=== PATIENT | female | born 1955 | race Caucasian/White ===

== ENCOUNTER → 2021-11-07 08:23 | Outpatient (CLI) | payer BC, SELFPAY ==
[2021-11-07 09:11] LABS: Basophils # 0.2 K/mm3 (0-0.2); Eosinophils # 0.3 K/mm3 (0.0-0.4); Eosinophils % 5.4 % (0.1-12.0); Hemoglobin 16.8 g/dL (12.2-16.2); Lymphocytes # 2.2 K/mm3 (0.7-4.5); Lymphocytes % 35.9 % (10-50); Mean Corpuscular HGB Conc 32.2 g/dL (31.8-35.4); Mean Corpuscular Hemoglobin 30.9 pg (27.0-31.2); Mean Corpuscular Volume 95.9 fl (81-99); Mean Platelet Volume 9.1 fl (7.4-10.4); Monocytes # 0.3 K/mm3 (0.1-1.0); Monocytes % 4.9 % (1.7-9.3); Neutrophils # 3.1 K/mm3 (1.8-7.8); Neutrophils % 50.8 % (37.0-80.0); Platelet Count 201 K/mm3 (142-424); Red Blood Count 5.42 M/mm3 (4.20-5.40); Red Cell Distribution Width 13.6 % (11.5-17.5); White Blood Count 6.2 K/mm3 (4.8-10.8)
[2021-11-07 09:41] LABS: Alanine Aminotransferase 72 U/L (12-78); Albumin Level 4.1 g/dl (3.5-5.0); Albumin/Globulin Ratio 1.8 (1.1-1.8); Alkaline Phosphatase 99 U/L (38-126); Anion Gap 13.1 mEq/L (5-15); Aspartate Amino Transferase 48 U/L (14-36); Bilirubin,Total 0.5 mg/dl (0.2-1.3); Blood Urea Nitrogen 22 mg/dl (7-17); Calcium 8.6 mg/dl (8.4-10.2); Carbon Dioxide 27 mmol/L (22.0-30.0); Chloride 103 mmol/L (98-107); Chol/HDL Ratio 2.6 (1-3.5); Cholesterol 134 mg/dl (140-200); Estimated Glomerular Filt Rate 101 ml/min (>60); GFR (African American) 122 ML/MIN (>60); Globulin 2.3 g/dL (1.3-3.2); Glucose 110 mg/dl (74-100); HDL Cholesterol 52 mg/dl (40-60); Potassium 4.1 mmoL/L (3.5-5.1); Sodium 139 mmol/L (136-145); Total Protein,Serum 6.4 g/dl (6.3-8.2); Triglycerides 145 mg/dl (30-150); VLDL Cholesterol 29 mg/dL (0-40)
[2021-11-07 09:51] LABS: Direct LDL Cholesterol 65.85 mg/dL (100-129)
[2021-11-07 10:08] LABS: Hemoglobin A1C 5.6 % (4.0-6.0)
[2021-11-07 10:11] LABS: Thyroid Stimulating Hormone 7.82 uIU/mL (0.465-4.68)
== END ==
DX: Z00.00 Encounter for general adult medical examination without abnormal findings (principal); E11.9 Type 2 diabetes mellitus without complications
CPT/HCPCS: 36415; 80053; 80061; 83036; 84443; 85025

== ENCOUNTER → 2022-04-15 23:28 | Outpatient (CLI) | payer MEDICARE, SELFPAY ==
[2022-04-15 17:21] LABS: Basophils # 0.1 K/mm3 (0-0.2); Basophils % 1.1 % (0.1-2.0); Eosinophils # 0.3 K/mm3 (0.0-0.4); Eosinophils % 4.2 % (0.1-12.0); Hematocrit 53.8 % (37.0-47.0); Hemoglobin 17.5 g/dL (12.2-16.2); Lymphocytes # 2.4 K/mm3 (0.7-4.5); Lymphocytes % 36.3 % (10-50); Mean Corpuscular HGB Conc 32.5 g/dL (31.8-35.4); Mean Corpuscular Hemoglobin 30.9 pg (27.0-31.2); Mean Corpuscular Volume 94.9 fl (81-99); Mean Platelet Volume 9.8 fl (7.4-10.4); Monocytes # 0.3 K/mm3 (0.1-1.0); Monocytes % 4.3 % (1.7-9.3); Neutrophils # 3.5 K/mm3 (1.8-7.8); Platelet Count 222 K/mm3 (142-424); Red Blood Count 5.67 M/mm3 (4.20-5.40); Red Cell Distribution Width 13.4 % (11.5-17.5); White Blood Count 6.5 K/mm3 (4.8-10.8)
[2022-04-15 17:37] LABS: Alanine Aminotransferase 107 U/L (12-78); Albumin Level 4.6 g/dl (3.5-5.0); Albumin/Globulin Ratio 1.8 (1.1-1.8); Alkaline Phosphatase 101 U/L (38-126); Anion Gap 14.1 mEq/L (5-15); Aspartate Amino Transferase 67 U/L (14-36); Bilirubin,Total 0.8 mg/dl (0.2-1.3); Blood Urea Nitrogen 13 mg/dl (7-17); Calcium 9.2 mg/dl (8.4-10.2); Carbon Dioxide 27 mmol/L (22.0-30.0); Chloride 102 mmol/L (98-107); Chol/HDL Ratio 2.4 (1-3.5); Cholesterol 146 mg/dl (140-200); Estimated Glomerular Filt Rate 84 ml/min (>60); GFR (African American) 102 ML/MIN (>60); Globulin 2.5 g/dL (1.3-3.2); Glucose 109 mg/dl (74-100); HDL Cholesterol 60 mg/dl (40-60); Potassium 4.1 mmoL/L (3.5-5.1); Sodium 139 mmol/L (136-145); Total Protein,Serum 7.1 g/dl (6.3-8.2); Triglycerides 164 mg/dl (30-150); VLDL Cholesterol 33 mg/dL (0-40)
[2022-04-15 17:48] LABS: Direct LDL Cholesterol 69.82 mg/dL (100-129)
[2022-04-15 17:50] LABS: Hemoglobin A1C 5.8 % (4.0-6.0)
[2022-04-15 17:54] LABS: 25-OH Vitamin D, Total 73.8 ng/mL (30-100)
[2022-04-15 18:07] LABS: Thyroid Stimulating Hormone 8.79 uIU/mL (0.465-4.68)
== END ==
PROVIDERS: PCP Student in an Organized Health Care Education/Training Program; Visit Provider Student in an Organized Health Care Education/Training Program
DX: E11.9 Type 2 diabetes mellitus without complications (principal); Z13.220 Encounter for screening for lipoid disorders; Z13.29 Encounter for screening for other suspected endocrine disorder; E55.9 Vitamin D deficiency, unspecified; Z79.84 Long term (current) use of oral hypoglycemic drugs; Z79.899 Other long term (current) drug therapy
CPT/HCPCS: 80053; 80061; 82306; 83036; 84443; 85025

== ENCOUNTER → 2022-04-30 10:10 | Outpatient (CLI) | payer MEDICARE, SELFPAY ==
[2022-04-30 10:30] LABS: MANUAL DIFFERENTIAL MANUAL DIFFERENTIAL (MANUAL DIFF)
[2022-04-30 11:02] LABS: Basophils # 0.1 K/mm3 (0-0.2); Basophils % 1.1 % (0.1-2.0); Eosinophils # 0.4 K/mm3 (0.0-0.4); Hematocrit 52.1 % (37.0-47.0); Hemoglobin 16.8 g/dL (12.2-16.2); Lymphocytes # 2.7 K/mm3 (0.7-4.5); Lymphocytes % 36.7 % (10-50); Mean Corpuscular HGB Conc 32.3 g/dL (31.8-35.4); Mean Corpuscular Volume 96.1 fl (81-99); Mean Platelet Volume 8.8 fl (7.4-10.4); Monocytes # 0.3 K/mm3 (0.1-1.0); Monocytes % 3.6 % (1.7-9.3); Neutrophils # 3.9 K/mm3 (1.8-7.8); Neutrophils % 53.6 % (37.0-80.0); Platelet Count 228 K/mm3 (142-424); Red Blood Count 5.42 M/mm3 (4.20-5.40); Red Cell Distribution Width 13.5 % (11.5-17.5); White Blood Count 7.2 K/mm3 (4.8-10.8)
[2022-04-30 11:22] LABS: Anisocytosis 1+; Eosinophils % 2 % (0-3); Lymphocytes % 36 % (10-50); Macrocytosis 1+; Monocytes % 1 % (2-9); Neutrophils % 61 % (42-76); Ovalocytes 1+; Platelet Estimate Normal; Total Cells Counted 100
[2022-04-30 11:31] LABS: Chloride 106 mmol/L (98-107); Sodium 141 mmol/L (136-145)
[2022-04-30 11:34] LABS: Alanine Aminotransferase 79 U/L (12-78); Albumin Level 4.4 g/dl (3.5-5.0); Alkaline Phosphatase 90 U/L (38-126); Aspartate Amino Transferase 52 U/L (14-36); Bilirubin,Total 0.7 mg/dl (0.2-1.3); Blood Urea Nitrogen 17 mg/dl (7-17); Estimated Glomerular Filt Rate 100 ml/min (>60); GFR (African American) 121 ML/MIN (>60)
[2022-04-30 11:35] LABS: Albumin/Globulin Ratio 1.8 (1.1-1.8); Calcium 8.6 mg/dl (8.4-10.2); Carbon Dioxide 25 mmol/L (22.0-30.0); Globulin 2.5 g/dL (1.3-3.2); Glucose 106 mg/dl (74-100); Total Protein,Serum 6.9 g/dl (6.3-8.2)
[2022-04-30 11:52] LABS: T4 (Thyroxine) 5.4 ug/dl (5.53-11.0)
[2022-04-30 12:46] LABS: Free Thyroxine Index 1.4 ug/dL (5.93-13.13); Triiodothryronine (T3) Uptake 25 % (23.5-40.5)
[2022-05-01 12:06] LABS: Thyroid Peroxidase Antibodies <9 IU/mL (0-34); Triiodothyronine (T3) Total 108 ng/dL (71-180)
[2022-05-01 17:21] LABS: Thyroglobulin Level <1.0 IU/mL (0.0-0.9)
[2022-05-02 10:28] LABS: Peripheral Smear Review Scanned Result
[2022-05-03 07:55] LABS: Thyroid Stimulating Immunoglob <0.10 IU/L (0.00-0.55)
== END ==
PROVIDERS: Family Medicine; PCP Student in an Organized Health Care Education/Training Program; Visit Provider Student in an Organized Health Care Education/Training Program
DX: E11.9 Type 2 diabetes mellitus without complications (principal); E03.9 Hypothyroidism, unspecified; Z79.84 Long term (current) use of oral hypoglycemic drugs
CPT/HCPCS: 36415; 80053; 82668; 84436; 84439; 84443; 84445; 84479; 84480; 85007; 85014; 85018; 85048; 85049; 86376; 86800

== ENCOUNTER → 2022-05-01 08:53 | Outpatient (CLI) | payer MEDICARE, SELFPAY ==
--- NOTE | 2022-05-01 08:54 | XR_ITS ---
FINAL REPORT TECHNIQUE: Bone densitometry calculations of the lumbar spine and hips were obtained. CLINICAL HISTORY: osteoporosis FINDINGS: DEXA BONE DENSITY AXIAL SKELETON Using L1-4, the bone mineral density of the spine is 0.767 g/cm2, corresponding to T-score of -2.5. Using the left hip, the bone mineral density of the femoral neck is 0.722 g/cm2, corresponding to a T-score of -1.1. Using the right hip, the bone mineral density of the femoral neck is 0.621 g/cm2, corresponding to a T-score of -2.1. NOTE: T-score: Standard deviation compared with peak bone mass of young adult mean. *Following the recommendations of the International Society of Bone densitometry, classification of hip BMD is based on the lower of two T-scores; total hip or femoral neck. IMPRESSION: Diminished bone mineral density of the hips consistent with osteopenia. Diminished bone mineral density of the lumbar spine consistent with borderline osteoporosis. FRAX not reported because: Some T-score for Spine Total or hip Total or femoral neck at or below-2.5. Reviewed, Interpreted and Dictated by Ralf Avalos MD Transcribed by Mariella Meek Authenticated and [facility]
== END ==
PROVIDERS: PCP Student in an Organized Health Care Education/Training Program; Visit Provider Student in an Organized Health Care Education/Training Program
DX: Z78.0 Asymptomatic menopausal state (principal)
CPT/HCPCS: 77080

== ENCOUNTER → 2022-05-30 10:00 | Outpatient (CLI) | payer MEDICARE, SELFPAY ==
[2022-05-30 10:36] LABS: Basophils # 0.1 K/mm3 (0-0.2); Basophils % 0.9 % (0.1-2.0); Eosinophils # 0.3 K/mm3 (0.0-0.4); Eosinophils % 4.2 % (0.1-12.0); Hematocrit 50.6 % (37.0-47.0); Hemoglobin 16.8 g/dL (12.2-16.2); Lymphocytes # 2.8 K/mm3 (0.7-4.5); Lymphocytes % 39.1 % (10-50); Mean Corpuscular HGB Conc 33.3 g/dL (31.8-35.4); Mean Corpuscular Hemoglobin 31.1 pg (27.0-31.2); Mean Corpuscular Volume 93.2 fl (81-99); Mean Platelet Volume 9.2 fl (7.4-10.4); Monocytes # 0.3 K/mm3 (0.1-1.0); Monocytes % 3.9 % (1.7-9.3); Neutrophils # 3.7 K/mm3 (1.8-7.8); Neutrophils % 51.9 % (37.0-80.0); Platelet Count 204 K/mm3 (142-424); Red Blood Count 5.43 M/mm3 (4.20-5.40); Red Cell Distribution Width 13.4 % (11.5-17.5); White Blood Count 7.1 K/mm3 (4.8-10.8)
[2022-05-30 11:10] LABS: Chloride 105 mmol/L (98-107); Potassium 4.3 mmoL/L (3.5-5.1); Sodium 140 mmol/L (136-145)
[2022-05-30 11:12] LABS: Blood Urea Nitrogen 20 mg/dl (7-17); Estimated Glomerular Filt Rate 84 ml/min (>60); GFR (African American) 102 ML/MIN (>60)
[2022-05-30 11:13] LABS: Alanine Aminotransferase 77 U/L (12-78); Albumin Level 4.2 g/dl (3.5-5.0); Albumin/Globulin Ratio 1.7 (1.1-1.8); Alkaline Phosphatase 98 U/L (38-126); Anion Gap 12.3 mEq/L (5-15); Aspartate Amino Transferase 52 U/L (14-36); Bilirubin,Total 0.6 mg/dl (0.2-1.3); Calcium 8.7 mg/dl (8.4-10.2); Carbon Dioxide 27 mmol/L (22.0-30.0); Globulin 2.5 g/dL (1.3-3.2); Glucose 122 mg/dl (74-100); Iron 97 ug/dL (37-170); Total Protein,Serum 6.7 g/dl (6.3-8.2)
[2022-05-30 11:29] LABS: Triiodothryronine (T3) Uptake 29 % (23.5-40.5)
[2022-05-30 11:43] LABS: Thyroid Stimulating Hormone 7.23 uIU/mL (0.465-4.68)
[2022-06-01 10:07] LABS: Peripheral Smear Review Scanned Result
== END ==
PROVIDERS: PCP Student in an Organized Health Care Education/Training Program; Visit Provider Student in an Organized Health Care Education/Training Program
DX: R71.8 Other abnormality of red blood cells (principal); R79.89 Other specified abnormal findings of blood chemistry; Z79.899 Other long term (current) drug therapy
CPT/HCPCS: 36415; 80053; 83540; 84436; 84443; 84479; 85025

== ENCOUNTER → 2022-08-01 14:56 | Outpatient (CLI) | payer MEDICARE, SELFPAY ==
[2022-08-01 16:40] LABS: Basophils # 0.1 K/mm3 (0-0.2); Basophils % 0.6 % (0.1-2.0); Eosinophils # 0.3 K/mm3 (0.0-0.4); Eosinophils % 3.3 % (0.1-12.0); Hematocrit 49.7 % (37.0-47.0); Hemoglobin 16.4 g/dL (12.2-16.2); Lymphocytes # 2.7 K/mm3 (0.7-4.5); Lymphocytes % 34.5 % (10-50); Mean Corpuscular Hemoglobin 30.3 pg (27.0-31.2); Mean Corpuscular Volume 91.7 fl (81-99); Mean Platelet Volume 9.7 fl (7.4-10.4); Monocytes # 0.4 K/mm3 (0.1-1.0); Monocytes % 4.6 % (1.7-9.3); Neutrophils # 4.4 K/mm3 (1.8-7.8); Neutrophils % 57.1 % (37.0-80.0); Platelet Count 217 K/mm3 (142-424); Red Blood Count 5.42 M/mm3 (4.20-5.40); Red Cell Distribution Width 13.5 % (11.5-17.5); White Blood Count 7.7 K/mm3 (4.8-10.8)
[2022-08-05 15:29] LABS: Erythropoietin 16.5 mIU/mL (2.6-18.5)
== END ==
PROVIDERS: PCP Student in an Organized Health Care Education/Training Program; Visit Provider Internal Medicine Medical Oncology
DX: D75.1 Secondary polycythemia (principal)
CPT/HCPCS: 36415; 81270; 82668; 85025

== ENCOUNTER → 2022-08-16 13:00 | Outpatient (CLI) | payer MEDICARE, SELFPAY | PROVIDERS: PCP Student in an Organized Health Care Education/Training Program; Visit Provider Internal Medicine Medical Oncology | DX: D75.1 Secondary polycythemia (principal); G47.30 Sleep apnea, unspecified; R06.83 Snoring | CPT/HCPCS: G0399 ==

== ENCOUNTER → 2022-09-04 13:59 | Outpatient (CLI) | payer MEDICARE, SELFPAY ==
[2022-09-04 15:52] LABS: Free T4 (Free Thyroxine) 0.71 ng/dl (0.78-2.19)
[2022-09-04 16:07] LABS: Thyroid Stimulating Hormone 4.53 uIU/mL (0.465-4.68)
== END ==
PROVIDERS: PCP Student in an Organized Health Care Education/Training Program; Visit Provider Student in an Organized Health Care Education/Training Program
DX: E13.69 Other specified diabetes mellitus with other specified complication (principal); Z79.84 Long term (current) use of oral hypoglycemic drugs; Z79.899 Other long term (current) drug therapy
CPT/HCPCS: 36415; 84439; 84443

== ENCOUNTER → 2022-09-19 07:10 | Outpatient (CLI) | payer MEDICARE, SELFPAY ==
--- NOTE | 2022-09-19 | CA_ITS ---
APPROVED REPORT Exam: Pharmacologic Technologist: Jasmina Balderas, Ht: 5 ft 2 in Wt: 204 lbs BSA: 1.93 m2 HR: 63 bpm BP: 156/60 mmHg Rhythm: NSR, low voltage QRS Medical History Medications: Levothyroxine,,,,, Metformin,,,,, Gabapentin,,,,, Prilosec,,,,, AmiTRIPTYLINE,,,,, BenaDRYL,,,,, JaRDiance,,,,, RoSUVASTATIN,,,,, Lancets,,,,, Galzin,,,,, Ciclopirox,,,,, Cardiac Risk Factors: Hyperlipidemia, Diabetes (non-insulin) Stress Test Details Test: LEXISCAN HR Resting HR: 66 bpm Max Heart Rate (APMHR): 155 bpm Max HR Achieved: 88 bpm Target HR (85% APMHR): 132 bpm % of APMHR: 57 Recovery HR: 76 bpm BP Resting BP: 156/60 mmHg Max BP: 156/60 mmHg Recovery BP: 142.0/73.0 mmHg ECG Resting ECG: NSR, low voltage QRS Stress ECG: No change Clinical Exercise duration: 04:00 min Highest Stage Achieved: Stress ECG Conclusion During lexiscan pt experinced stomach and head discomfort. No CP noted. No arrhythmias noted. No signficant ST changes. Unremarkable lexiscan stress. Myoview images reported separately. Test Summary REST . . . . . . . Sitting REST . . . . . . . Sitting REST 03:57 . . 66 . 156/ 60 . . Stage 1 01:00 . . 79 . . . . Stage 2 01:00 . . 83 . 148/ 64 . . Stage 3 01:00 . . 84 . 142/ 66 . . Stage 4 01:00 . . 83 . 122/ 77 . Stop exercise at 04:00 RECOVERY 01:00 . . 77 . . . . RECOVERY 02:00 . . 77 . 142/ 73 . . RECOVERY 03:00 . . 74 . 149/ 68 . . RECOVERY 03:28 . . 76 . 149/ 68 . . Electronically signed by : Hyun David, 09/23/2022 12:21:32
--- NOTE | 2022-09-19 07:10 | NM_ITS ---
APPROVED REPORT Exam: Nuclear Stress Test Indication: fatigue Patient Location: Outpatient Stress Tech: Jasmina ACHARYA Tech:Tammy SorensenCHEPE RT(R)(N) Ht: 5 ft 2 in Wt: 204 lbs Bra Size: 40d HR: 66 bpm BP: 156/60 mmHg BSA: 1.93 m2 Rhythm: NSR TID: 1.18 BMI: 37.3 History: fatigue Procedure: Patient received 0.4 mg of intravenous Lexiscan, resting heart rate 66 bpm, resting blood pressure 156/60 mmHg, with Lexiscan maximum heart rate achieved was 88 bpm which is 85 % of the maximum predicted heart rate and blood pressure was 156/60 mmHg. With Lexiscan, patient denied any complaint of chest pain. Cardiac Stress and Resting SPECT Images: Cardiac Stress and Resting SPECT images were obtained using technetium 99m Myoview 30.7 mCi stress and 10.45 mCi at rest. Resting and stress imaging in both supine and prone positions demonstrate no evidence of fixed or reversible perfusion defects. Gated imaging demonstrates normal global and regional LV systolic function. LVEF is calculated at 73%. Conclusion: No evidence of fixed or reversible perfusion defects. Gated imaging demonstrates normal global and regional LV systolic function. LVEF is calculated at 73%. Electronically signed by : Hyun David, 09/23/2022 12:24:39
== END ==
LOC: RAD 07:10
PROVIDERS: PCP Student in an Organized Health Care Education/Training Program; Visit Provider Physician Assistant
DX: E11.9 Type 2 diabetes mellitus without complications (principal); E66.9 Obesity, unspecified; E78.5 Hyperlipidemia, unspecified; I25.118 Atherosclerotic heart disease of native coronary artery with other forms of angina pectoris; R06.00 Dyspnea, unspecified; R07.89 Other chest pain; Z79.84 Long term (current) use of oral hypoglycemic drugs; Z68.36 Body mass index [BMI] 36.0-36.9, adult
CPT/HCPCS: 78452; 93017; A9502; J2785

== ENCOUNTER → 2022-10-04 14:01 | Outpatient (CLI) | payer MEDICARE, SELFPAY ==
--- NOTE | 2022-10-04 14:11 | CA_ITS ---
APPROVED REPORT EXAM: Comprehensive 2D, Doppler, and color-flow Echocardiogram Social Insurance Specialist: Robyn Lopez RDCS Ht: 5 ft 2 in Wt: 204lbs BSA: 1.93 BP: 144/76 mmHg Indications: CP,DM,SOA,OBESITY,HLP.HTN 2D Dimensions LVOT 1.58 cm (M/F) 1.5-2.5 M-Mode Dimensions RVDd 2.22 cm (0.9-2.6) LA Diam 3.26 cm (1.9-4.0) LVDd 4.54 cm (3.5-5.7) Ao Diam 2.70 cm (2.0-3.7) LVDs 3.07 cm (3.5-5.7) IVSd 0.81 cm (0.6-1.1) PWd 0.75 cm (0.6-1.1) EF (Teich) 60.80% FS 32.40% EDV (Teich) 94.40 mL ESV (Teich) 37.00 mL LV Diastology E Decel Time 270.00 (160-240 msec) E/A Ratio 1.0 MED E' 6.30 (< 7 cm/sec) E'/MED E' Ratio 14.05 (>14) LAT E' 8.80 (<10 cm/sec) E/LAT E' Ratio 10.06 (>14) Mitral Valve MV E Max Ernesto. 88.00 (40-130 cm/s) MV A Velocity 86.00 (40-130 cm/s) E/A Ratio 1.03 MV Decel. Time 270.00 (160-240 ms) MV PHT 79.00 ms Left Ventricle The left ventricle is normal size. The left ventricular systolic function is normal. The left ventricular ejection fraction is within the normal range. Proximal septal thickening is present. There is normal LV segmental wall motion. The left ventricular diastolic function is normal. LVEF is 60%. Right Ventricle The right ventricle is mildly dilated. The right ventricular systolic function is normal. Atria The left atrium size is normal. The right atrium size is normal. There is no Doppler evidence of interatrial shunt. Aortic Valve The aortic valve opens well. There is no aortic valvular stenosis. No aortic regurgitation is present. Mitral Valve The mitral valve is normal in structure. No evidence of mitral valve stenosis. Trace mitral regurgitation. Tricuspid Valve The tricuspid valve leaflets are thin and pliable. Trace tricuspid regurgitation. RVSP is normal. Pulmonic Valve The pulmonary valve is normal in structure. Trace pulmonic regurgitation. Great Vessels The aortic root is normal in size. The ascending aorta is normal in size. IVC is normal in size and collapses >50% with inspiration. Pericardium There is no pericardial effusion. An epicardial fat pad is noted. Other Information Study Quality: Fair Conclusion Normal biventricular systolic function. Mild RV dilation. No significant valvular disease. Electronically signed by : Hyun David, 10/07/2022 17:18:25
== END ==
LOC: RT 14:04
PROVIDERS: PCP Student in an Organized Health Care Education/Training Program; Visit Provider Physician Assistant
DX: E11.9 Type 2 diabetes mellitus without complications (principal); E66.9 Obesity, unspecified; E78.5 Hyperlipidemia, unspecified; I25.118 Atherosclerotic heart disease of native coronary artery with other forms of angina pectoris; R06.00 Dyspnea, unspecified; R07.89 Other chest pain; Z68.37 Body mass index [BMI] 37.0-37.9, adult; Z79.84 Long term (current) use of oral hypoglycemic drugs
CPT/HCPCS: 93306

== ENCOUNTER → 2022-10-31 12:57 | Outpatient (POV) | payer MEDICARE, SELFPAY ==
[2022-10-31 13:04] VITALS: BP 193/83; PULSE 58; RESP 18; O2SAT 95; BMI 37.0
--- NOTE | 2022-10-31 13:04 | EXP.PAIN.OV ---
HPI Data of Consult Patient: new to practice Consult date: 10/31/22 Requesting Physician: Sonia Ramos APRN Primary Care Provider: DONNELL Antonio Consult Narrative History of present illness: Ms. Champagne is a 66 year old female who presents today as a new patient. She is a referral from Cristiane Bauman's office. Today she rates her pain at a 10 out of 10. Patient states her pain is all in her low back and denies any radiating symptoms into her legs. Patient states this has been going on since 2020 unrelated to any specific trauma or injury. She does describe this as an aching, throbbing, sharp sensation. She states the pain is worse with increased activity and then will sometimes get better with rest. She states that she can sit down and prop her feet up onto a stool with lumbar support and get relief. Patient does state the pain makes it difficult to perform activities of daily living such as cooking and cleaning. Patient does state the pain is worse with increased movements such as bending, twisting, lifting. Patient has tried [id number] Tylenol and ibuprofen along with heat and ice and topicals with minimal relief. Patient has had physical therapy in the past that did help. She states she continues to do at home exercising and stretching for longer than 12 weeks with minimal improvements. Patient does use a TENS unit at home with some improvement. Patient has been tried on gabapentin 300 mg 3 times a day from an outside provider. She denies any side effects from this medication. Patient denies any recent imaging of her lumbar spine. She states the last time she had imaging was back in 2020 when she was in [place] and that her doctor did tell her that she had arthritis throughout her lumbar spine. Her Roel is [phone]. Its been reviewed and appropriate. Patient does have a significant comorbidities including diabetes and coronary artery disease. CC: Sonia Ramos APRN [facility] Disclaimer: The information contained in this section may have been updated after the patient was seen, as this information can be updated by other users. Medical History Arthritis Back pain Coronary artery disease Diabetes mellitus Hyperlipidemia Surgical History H/O section H/O: hysterectomy History of wisdom tooth extraction Family History Other Cancer Coronary artery disease Diabetes Hyperlipidemia Hypertension Social History Smoking Status: Former smoker alcohol intake: current substance use type: denies use current occupational status: retired Travel in the last 8 weeks: None housing: house lives independently: Yes marital status: Review of Systems Review of Systems Review of systems:: pertinent systems reviewed and negative unless documented below Review of systems (narrative): Review of Systems: General: No recent weight changes, no fever, no sleep disturbances Respiratory: No cough, no shortness of air, no recurring pulmonary infections Cardiovascular/peripheral vascular: No chest pain, no palpitations, no edema, no shortness of breath Gastrointestinal: No new onset incontinence, normal bowel movements reported Genitourinary: No new onset incontinence Musculoskeletal: Low back pain Psychiatric: [Normal mood/affect] Neurological: [Denies weakness in extremities], [denies balance issues] Meds Home Medications and Allergies Home Medications Medication Instructions Recorded Confirmed Type gabapentin 300 mg capsule 300 mg PO TID 04/15/22 10/09/22 History glucosam 750 mg-chondroi 100 tab PO 04/15/22 10/09/22 History mg-hyalur 1.65 mg-CF borate 108 mg tablet (Ruci.cn) triamcinolone acetonide 0.1 % 1 applic topical BID #15 grams 04/15/2210/09
== END ==
PROVIDERS: PCP Student in an Organized Health Care Education/Training Program; Visit Provider Nurse Practitioner Family
DX: M54.50 Low back pain, unspecified (principal); G89.29 Other chronic pain; M47.816 Spondylosis without myelopathy or radiculopathy, lumbar region
CPT/HCPCS: 99202; G0463

== ENCOUNTER → 2022-10-31 13:44 | Outpatient (CLI) | payer MEDICARE, SELFPAY ==
--- NOTE | 2022-10-31 13:48 | XR_ITS ---
FINAL REPORT TECHNIQUE: 5 views CLINICAL HISTORY: LBP COMPARISON: None FINDINGS: There is no fracture present. There is minimal spondylolisthesis of L4 on L5. There is moderate sclerosis of the facets in the lower lumbar spine. IMPRESSION: No acute process. Mild to moderate degenerative change as described. Reviewed, Interpreted and Dictated by Ralf Avalos MD Transcribed by Mary Hines Authenticated and . [facility]
== END ==
LOC: RAD 13:45
PROVIDERS: PCP Student in an Organized Health Care Education/Training Program; Visit Provider Nurse Practitioner Family
DX: M54.50 Low back pain, unspecified (principal); M47.816 Spondylosis without myelopathy or radiculopathy, lumbar region; G89.29 Other chronic pain
CPT/HCPCS: G0463; 72110; 99202

== ENCOUNTER 2022-11-26 09:50 | Day surgery (SDC) | payer MEDICARE, SELFPAY ==
[2022-11-26 10:02] VITALS: BP 143/80; PULSE 77; RESP 20; TEMP 36.6; O2SAT 95; BMI 36.3
[2022-11-26 10:35] VITALS: BP 157/62; PULSE 72; RESP 18; O2SAT 93
[2022-11-26 10:36] VITALS: BP 157/62; PULSE 68; RESP 18; O2SAT 93
--- NOTE | 2022-11-26 10:42 | P.PCN_ITS ---
Procedure Date: 11/26/22 Time: 10:35 Anesthesiologist:: Rodney Hyde CRNA Complications:: None Pre-procedure Diagnosis:: Degenerative disc lumbar spine multilevels. Lumbar radiculopathy. Lumbar spondylosis. Multilevel lumbar facet arthropathy. Post-procedure Diagnosis:: Same. Indications for Procedure:: Patient is a pleasant 66-year-old female that comes our clinic today for a lumbar bilateral L4-5, L5-S1 medial branch block/facet injection. Patient complains of low back pain she describes as constant, dull, aching. She rates the pain 7/10. Patient has difficulty with flexion, extension, left and right rotation. Procedure Details:: Informed consent was obtained and the risk and benefits of the procedure was explained to the patient. Patient was taken to the procedure room where noninvasive monitors were placed, including noninvasive blood pressure cuff as well as pulse oximeter. The area over the lumbar spine was cleansed using chlorhexidine as a cleansing solution. I anesthetized the skin and subcutaneous tissues with 1% Lidocaine. I placed 22-gauge spinal needles into the facet joint/ medial branches of L4-L5, and L5-S1] bilaterally. Needle placement was confirmed with fluoroscopy. After confirmation of needle placement, each site was injected with 1 mL of 1% lidocaine and 0.25 % Marcaine and 10 mg of Depo- Medrol. A total of 80 mg of depo medrol was used for bilateral medial branch blocks of L4-L5, and L5-S1] bilaterally. Patient tolerated the procedure without difficulty. There were no complications. Plan and Disposition:: Patient was discharged without incident.
[2022-11-26 11:02] VITALS: BP 126/65; PULSE 72
== END 2022-11-26 10:41 | disposition home or self-care (01) ==
PROVIDERS: PCP Student in an Organized Health Care Education/Training Program; Visit Provider Nurse Anesthetist, Certified Registered
DX: M47.896 Other spondylosis, lumbar region (principal); M51.16 Intervertebral disc disorders with radiculopathy, lumbar region
CPT/HCPCS: 64493; 64494; J1040

== ENCOUNTER → 2022-12-13 09:39 | Outpatient (POV) | payer MEDICARE, SELFPAY ==
[2022-12-13 09:58] VITALS: BP 149/48; PULSE 71; RESP 18; O2SAT 98; BMI 36.7
--- NOTE | 2022-12-13 10:04 | EXP.PAIN.SOA ---
[facility] Pain Management SOAP Note Subjective:: Patient is a pleasant 66-year-old female who presents today for follow-up of her first diagnostic lumbar medial branch blocks bilaterally L4-L5 and L5-S1 on 11/26/2022. We are currently treating the patient for degenerative disc disease of lumbar spine with lumbar radiculopathy symptoms, lumbar spondylosis, lumbar facet arthropathy. Today she rates her pain a 3 out of 10. Patient states she had at least 70% improvement initially following these injections and that during that time she was able to increase her activity with decreased pain symptoms. She does state over the last couple of weeks her pain has slowly went back to its baseline. She does states she continues to have pain in and around her low back that does not radiate into her legs. She describes this as an aching sensation with occasional sharp shooting pains. She does state the pain interferes with her ability to perform activities of daily living such as cooking and cleaning. She is interested in repeating her prior injection. Patient has tried and failed conservative therapy such as oral medications, heat and ice, topicals, physical therapy, at home exercising and stretching for longer than 12 weeks. Patient is currently on gabapentin 300 mg 3 times a day from an outside provider. She does also state that in the past she has had injuries to her bilateral shoulders and that these will occasionally flareup causing worsening pain. Her Roel has been reviewed and is appropriate. Review of Systems: General: No recent weight changes, no fever, no sleep disturbances Respiratory: No cough, no shortness of air, no recurring pulmonary infections Cardiovascular/peripheral vascular: No chest pain, no palpitations, no edema, no shortness of breath Gastrointestinal: No new onset incontinence, normal bowel movements reported Genitourinary: No new onset incontinence Musculoskeletal: Low back pain, shoulder pain Psychiatric: [Normal mood/affect] Neurological: [Denies weakness in extremities], [denies balance issues] Objective:: Physical Exam: General: Alert and oriented x3, no acute distress, pleasant and cooperative Lungs: Respirations even and unlabored, symmetrical chest expansion Eyes: PERRL Musculoskeletal: Flexion and extension of lumbar [spine] somewhat guarded secondary to pain, [antalgic gait noted] positive Kemps test Neurological: Speech clear, no gross sensory deficit Assessment:: Degenerative disc disease of lumbar spine with lumbar facet arthropathy, lumbar spondylosis, bilateral shoulder pain Plan:: Patient is experiencing worsening pain in her low back with limited range of motion. Patient did have a positive Kemps test. Patient did have a successful diagnostic lumbar medial branch block with more than 70% improvement. I have discussed with the patient regarding the risk and benefits of repeating her lumbar medial branch block. Patient would like to proceed forward with this plan of care. We will schedule the patient for her second lumbar medial branch block bilaterally L4-L5 and L5-S1. Patient denied any blood thinners however in our electronic system it does show a full-strength aspirin. We will call to confirm this with the patient and verify that she stops this prior to her injection if she is still currently taking this medication. If she again has significant relief we will plan on proceeding forward with the lumbar RFA in the future. Patient has been instructed to contact the clinic with any concerns before the next appointment. Dr. Nolan has reviewed this note and agrees with this plan of care. This note was dictated using voice recognition software and make contain errors or omissions. [facility] Disclaimer: The information contained in this section may have been updated after the patient was seen, as this information can be updated by other users. Medical History Arthritis Ba
== END ==
LOC: SC.PAIN 09:40
PROVIDERS: PCP Student in an Organized Health Care Education/Training Program; Visit Provider Nurse Practitioner Family
DX: M51.36 Other intervertebral disc degeneration, lumbar region (principal); M47.816 Spondylosis without myelopathy or radiculopathy, lumbar region; M25.511 Pain in right shoulder; M25.512 Pain in left shoulder
CPT/HCPCS: 99212; G0463

== ENCOUNTER → 2023-01-30 08:45 | Outpatient (POV) | payer MEDICARE, SELFPAY ==
[2023-01-30 08:57] VITALS: BP 146/78; PULSE 70; RESP 18; O2SAT 95; BMI 36.7
--- NOTE | 2023-01-30 09:04 | EXP.PAIN.SOA ---
[facility] Pain Management SOAP Note Subjective:: Patient is a pleasant 67-year-old female who presents today for insurance denial of her second medial branch block. We are currently treating the patient for degenerative disc disease of lumbar spine with lumbar radiculopathy symptoms, lumbar spondylosis, lumbar facet arthropathy. Today she rates her pain a 5 out of 10. Patient denies any new trauma or injury. She does state that she continues to have worsening pain that is going back towards its baseline. Patient did have her first diagnostic lumbar medial branch block bilaterally L4-L5 and L5-S1 on 11/26/2022. Patient at her 2-week follow-up had rated at least 70% improvement however today she does state that it was even 80% or more. Patient states that over the last couple of weeks she has had more of a washout. And realized that the injection was helping even more than what she initially thought. Patient states that she was able to increase her activity with decreased pain symptoms and felt more functional. Patient states she was even able to stop using her TENS unit and that was able to decrease her oral pain medications while that injection was helping. Patient is stating that she is starting to have more achy, throbbing pains with occasional sharp sensations in her low back and denies any radiating symptoms into her legs. Patient states it does interfere with her ability perform activities of daily living such as cooking and cleaning. She is interested in repeating her diagnostic medial branch block. Patient has tried [id number] Tylenol and ibuprofen along with heat and ice and topicals with minimal relief. Patient has done physical therapy and home exercise and stretching for longer than 12 weeks. Patient is currently managed with gabapentin 300 mg 3 times a day from an outside provider. Her Roel has been reviewed and is appropriate. Review of Systems: General: No recent weight changes, no fever, no sleep disturbances Respiratory: No cough, no shortness of air, no recurring pulmonary infections Cardiovascular/peripheral vascular: No chest pain, no palpitations, no edema, no shortness of breath Gastrointestinal: No new onset incontinence, normal bowel movements reported Genitourinary: No new onset incontinence Musculoskeletal: Low back pain Psychiatric: [Normal mood/affect] Neurological: [Denies weakness in extremities], [denies balance issues] Objective:: Physical Exam: General: Alert and oriented x3, no acute distress, pleasant and cooperative Lungs: Respirations even and unlabored, symmetrical chest expansion Eyes: PERRL Musculoskeletal: Flexion and extension of lumbar [spine] somewhat guarded secondary to pain, [antalgic gait noted] positive Kemps test Neurological: Speech clear, no gross sensory deficit Assessment:: Degenerative disc disease of lumbar spine with lumbar radiculopathy symptoms, lumbar spondylosis, lumbar facet arthropathy Plan:: Patient is experiencing worsening pain in her low back with limited range of motion and a positive Kemps test. I have reviewed over with the patient the risk and benefits of the second diagnostic lumbar medial branch block and she would like to proceed forward with this plan of care. Patient does state that she had at least 80% improvement following her first diagnostic set of injections and that they did enable her to decrease her pain medications and TENS therapy while it was working. Patient has tried and failed conservative treatment such as oral medications, heat and ice, topicals, TENS unit, physical therapy, at home stretching exercise for longer than 12 weeks. Patient will be resubmitted for the lumbar medial branch block bilaterally L4-L5 and L5-S1. This will be diagnostic block #2. If she does have successful results we will plan on proceeding forward with the lumbar RFA. Patient has been instructed to contact the clinic with any concerns before the next appointment. Dr. Nolan has reviewed t
== END ==
PROVIDERS: PCP Student in an Organized Health Care Education/Training Program; Visit Provider Nurse Anesthetist, Certified Registered
DX: M51.16 Intervertebral disc disorders with radiculopathy, lumbar region (principal); M47.26 Other spondylosis with radiculopathy, lumbar region
CPT/HCPCS: 99212; G0463

== ENCOUNTER 2023-02-25 08:11 | Day surgery (SDC) | payer MEDICARE, SELFPAY ==
[2023-02-25 08:32] VITALS: BP 137/70; PULSE 70; RESP 16; TEMP 36.4; O2SAT 95; BMI 37.3
[2023-02-25] MEDS: methylPREDNISolone ACETATE 80MG/ML VIAL 80 MG (09:07)
[2023-02-25 09:08] VITALS: BP 146/84; PULSE 60; RESP 18; O2SAT 94
[2023-02-25] MEDS: LIDOCAINE 1% 5ML PF VIAL 5 ML (09:08)
[2023-02-25] MEDS: BUPIVACAINE 0.25% 10ML INJ 25 MG IJ (09:08)
[2023-02-25 09:09] VITALS: BP 146/84; PULSE 64; RESP 18; O2SAT 94
[2023-02-25 09:15] VITALS: BP 149/82; PULSE 64; RESP 16; O2SAT 95
--- NOTE | 2023-02-25 09:23 | P.PCN_ITS ---
Procedure Date: 02/25/23 Time: 08:45 Anesthesiologist:: Rodney Hyde CRNA Complications:: None Pre-procedure Diagnosis:: Left sacroiliitis. Degenerative disc lumbar spine multilevels. Lumbar radiculopathy. Lumbar spondylosis. Multilevel lumbar disc bulge. Multilevel lumbar facet arthropathy. Post-procedure Diagnosis:: Same. Indications for Procedure:: Patient is a very pleasant 66-year-old female comes our clinic today for repeat lumbar L4-5, L5-S1 medial branch block/facet injection bilaterally. Patient has had this injection in the past with some significant improvement terms of her overall low back pain as well as bilateral hip radicular symptoms. Patient describes low back pain as constant, dull, aching. Patient also complains of difficulty with flexion, extension, left and right rotation. Patient rates her pain 7/10. Procedure Details:: Informed consent was obtained and the risk and benefits of the procedure was explained to the patient. Patient was taken to the procedure room where noninvasive monitors were placed, including noninvasive blood pressure cuff as well as pulse oximeter. The area over the lumbar spine was cleansed using chlorhexidine as a cleansing solution. I anesthetized the skin and subcutaneous tissues with 1% Lidocaine. I placed 22-gauge spinal needles into the facet joint/ medial branches of L4-L5, and L5-S1] bilaterally. Needle placement was confirmed with fluoroscopy. After confirmation of needle placement, each site was injected with 1 mL of 1% lidocaine and 0.25 % Marcaine and 10 mg of Depo- Medrol. A total of 80 mg of depo medrol was used for bilateral medial branch blocks of L4-L5, and L5-S1] bilaterally. Patient tolerated the procedure without difficulty. There were no complications. Plan and Disposition:: Patient was discharged without incident.
--- NOTE | 2023-02-25 09:26 | P.PCN_ITS ---
Procedure Date: 02/25/23 Time: 08:48 Anesthesiologist:: Rodney Hyde CRNA Complications:: None Pre-procedure Diagnosis:: Degenerative disc lumbar spine multilevels. Lumbar radiculopathy. Lumbar facet arthropathy. Lumbar spondylosis. Post-procedure Diagnosis:: Same. Indications for Procedure:: Very pleasant 67-year-old female comes our clinic today for a repeat lumbar medial branch block bilaterally L4-5, L5-S1. Patient responded very well to this in the past. She reports low back pain is constant, dull, aching. Pain increases with standing and/or ambulation. Also, pain increases with sitting for any length of time. She rates her pain 7/10. Patient reports pain increases with flexion, extension, left and right rotation. Procedure Details:: Informed consent was obtained and the risk and benefits of the procedure was explained to the patient. Patient was taken to the procedure room where noninvasive monitors were placed, including noninvasive blood pressure cuff as well as pulse oximeter. The area over the lumbar spine was cleansed using chlorhexidine as a cleansing solution. I anesthetized the skin and subcutaneous tissues with 1% Lidocaine. I placed 22-gauge spinal needles into the facet joint/ medial branches of L4-L5, and L5-S1] bilaterally. Needle placement was confirmed with fluoroscopy. After confirmation of needle placement, each site was injected with 1 mL of 1% lidocaine and 0.25 % Marcaine and 10 mg of Depo- Medrol. A total of 80 mg of depo medrol was used for bilateral medial branch blocks of L4-L5, and L5-S1] bilaterally. Patient tolerated the procedure without difficulty. There were no complications. Plan and Disposition:: Patient was discharged without incident.
== END 2023-02-25 09:15 | disposition home or self-care (01) ==
LOC: SC.PAINP 08:12
PROVIDERS: PCP Student in an Organized Health Care Education/Training Program; Visit Provider Nurse Anesthetist, Certified Registered
DX: M47.896 Other spondylosis, lumbar region (principal); M51.16 Intervertebral disc disorders with radiculopathy, lumbar region
CPT/HCPCS: 64493; 64494; J1040

== ENCOUNTER → 2023-03-12 09:02 | Outpatient (POV) | payer MEDICARE, SELFPAY ==
--- NOTE | 2023-03-12 09:27 | EXP.PAIN.SOA ---
[facility] Pain Management SOAP Note Subjective:: Patient is a pleasant 67-year-old female who presents today for 1 month follow-up of her lumbar MBB bilaterally L4-L5 and L5-S1 on 02/25/2023. We are currently treating the patient for degenerative disc disease of lumbar spine with lumbar radiculopathy symptoms, lumbar facet arthropathy, lumbar spondylosis. Today she rates her pain a 2 out of 10. Patient denies any new trauma or injury. She does state that she continues to get 80% relief or more. Patient states that she has been able to increase her activity with decreased pain symptoms and feels overall more functional. Patient is asking about possible physical therapy today. Patient is currently managed with gabapentin 300 mg 3 times a day from an outside provider. Her Roel has been reviewed and is appropriate. Review of Systems: General: No recent weight changes, no fever, no sleep disturbances Respiratory: No cough, no shortness of air, no recurring pulmonary infections Cardiovascular/peripheral vascular: No chest pain, no palpitations, no edema, no shortness of breath Gastrointestinal: No new onset incontinence, normal bowel movements reported Genitourinary: No new onset incontinence Musculoskeletal: Low back pain Psychiatric: [Normal mood/affect] Neurological: [Denies weakness in extremities], [denies balance issues] Objective:: Physical Exam: General: Alert and oriented x3, no acute distress, pleasant and cooperative Lungs: Respirations even and unlabored, symmetrical chest expansion Eyes: PERRL Musculoskeletal: Flexion and extension of lumbar [spine] somewhat guarded secondary to pain, [antalgic gait noted] Neurological: Speech clear, no gross sensory deficit Assessment:: Degenerative disc disease of lumbar spine with lumbar radiculopathy symptoms, lumbar facet arthropathy, lumbar spondylosis Plan:: Patient has had significant improvement following her lumbar medial branch block. This was the patient's second diagnostic block. I will order the patient physical therapy for evaluation and treatment of her low back pain. Patient will return to clinic in 3 months for reevaluation of symptoms and plan of care. Patient has been instructed to contact the clinic with any concerns before the next appointment. Dr. Nolan has reviewed this note and agrees with this plan of care. This note was dictated using voice recognition software and make contain errors or omissions. [facility] Disclaimer: The information contained in this section may have been updated after the patient was seen, as this information can be updated by other users. Medical History Arthritis Back pain Coronary artery disease Diabetes mellitus Hyperlipidemia KIESHA (obstructive sleep apnea) Surgical History H/O section H/O: hysterectomy History of wisdom tooth extraction Family History Other Cancer Coronary artery disease Diabetes Hyperlipidemia Hypertension Social History Smoking Status: Former smoker alcohol intake: current substance use type: denies use current occupational status: retired Travel in the last 8 weeks: None housing: house lives independently: Yes marital status:
[2023-03-12 10:09] VITALS: BP 103/76; PULSE 69; RESP 18; O2SAT 94; BMI 36.7
== END ==
LOC: SC.PAIN 09:02
PROVIDERS: PCP Student in an Organized Health Care Education/Training Program; Visit Provider Nurse Practitioner Family
DX: M51.16 Intervertebral disc disorders with radiculopathy, lumbar region (principal); M47.26 Other spondylosis with radiculopathy, lumbar region
CPT/HCPCS: 99212; G0463

== ENCOUNTER 2023-04-14 17:35 | Outpatient (CLI) | payer MEDICARE, SELFPAY ==
[2023-04-14 17:55] LABS: Basophils # 0.1 K/mm3 (0-0.2); Basophils % 1.5 % (0.1-2.0); Eosinophils # 0.3 K/mm3 (0.0-0.4); Eosinophils % 3.8 % (0.1-12.0); Hematocrit 52.7 % (37.0-47.0); Hemoglobin 16.8 g/dL (12.2-16.2); Lymphocytes # 2.8 K/mm3 (0.7-4.5); Lymphocytes % 40.5 % (10-50); Mean Corpuscular HGB Conc 31.9 g/dL (31.8-35.4); Mean Corpuscular Hemoglobin 32.7 pg (27.0-31.2); Mean Corpuscular Volume 102.4 fl (81-99); Mean Platelet Volume 10.5 fl (7.4-10.4); Monocytes # 0.4 K/mm3 (0.1-1.0); Monocytes % 5.8 % (1.7-9.3); Neutrophils # 3.4 K/mm3 (1.8-7.8); Neutrophils % 48.5 % (37.0-80.0); Platelet Count 233 K/mm3 (142-424); Red Blood Count 5.15 M/mm3 (4.20-5.40); Red Cell Distribution Width 13.7 % (11.5-17.5)
[2023-04-14 18:09] LABS: Alanine Aminotransferase 146 U/L (12-78); Albumin Level 4.5 g/dl (3.5-5.0); Alkaline Phosphatase 101 U/L (38-126); Anion Gap 12.7 mEq/L (5-15); Aspartate Amino Transferase 90 U/L (14-36); Bilirubin,Total 0.7 mg/dl (0.2-1.3); Blood Urea Nitrogen 15 mg/dl (7-17); Calcium 9.3 mg/dl (8.4-10.2); Carbon Dioxide 28 mmol/L (22.0-30.0); Chloride 106 mmol/L (98-107); Chol/HDL Ratio 2.9 (1-3.5); Cholesterol 135 mg/dl (140-200); Estimated Glomerular Filt Rate 84 ml/min (>60); GFR (African American) 101 ML/MIN (>60); Globulin 2.3 g/dL (1.3-3.2); Glucose 158 mg/dl (74-100); HDL Cholesterol 46 mg/dl (40-60); Potassium 4.7 mmoL/L (3.5-5.1); Sodium 142 mmol/L (136-145); Total Protein,Serum 6.8 g/dl (6.3-8.2); Triglycerides 144 mg/dl (30-150); Uric Acid 3.2 mg/dl (2.5-6.2); VLDL Cholesterol 29 mg/dL (0-40)
[2023-04-14 18:20] LABS: Direct LDL Cholesterol 66.51 mg/dL (100-129)
[2023-04-14 18:21] LABS: Erythrocyte Sedimentation Rate 2 mm/hr (0-30)
[2023-04-14 18:39] LABS: Thyroid Stimulating Hormone 3.47 uIU/mL (0.465-4.68)
[2023-04-14 19:11] LABS: Free T4 (Free Thyroxine) 0.96 ng/dl (0.78-2.19)
[2023-04-16 11:13] LABS: RA Latex Turbid. <10.0 IU/mL (<14.0)
[2023-04-17 12:13] LABS: Anti-Centromere B Antibodies <0.2 AI (0.0-0.9); Anti-DNA (DS) Ab Qn 1 IU/mL (0-9); Anti-Jo-1 <0.2 AI (0.0-0.9); Anti-Smith Antibody <0.2 AI (0.0-0.9); Antichromatin Antibodies <0.2 AI (0.0-0.9); Antiscleroderma-70 Antibodies <0.2 AI (0.0-0.9); RNP Antibodies <0.2 AI (0.0-0.9); Sjogren's Anti-SS-A <0.2 AI (0.0-0.9); Sjogren's Anti-SS-B <0.2 AI (0.0-0.9)
[2023-04-19 09:09] LABS: Antinuclear Antibodies, IFA Positive
== END 2023-04-14 23:59 ==
LOC: LAB.DROPOF 17:36
PROVIDERS: PCP Student in an Organized Health Care Education/Training Program; Visit Provider Student in an Organized Health Care Education/Training Program
DX: E11.9 Type 2 diabetes mellitus without complications (principal); M19.90 Unspecified osteoarthritis, unspecified site; E78.5 Hyperlipidemia, unspecified; E03.9 Hypothyroidism, unspecified; L40.8 Other psoriasis; Z79.84 Long term (current) use of oral hypoglycemic drugs
CPT/HCPCS: 80053; 80061; 83036; 84439; 84443; 84550; 85025; 85651; 86038; 86225; 86235; 86431

== ENCOUNTER 2023-04-16 11:00 | Outpatient (RCR) | payer MEDICARE, SELFPAY ==
--- NOTE | 2023-04-16 12:18 | HMH.RHREAS ---
Rehab Reassessment Rehab OP Re-assessment Start: 03/17/23 07:59 Freq: Status: Active Protocol: Document 04/16/23 10:44 IKER (Rec: 04/16/23 12:17 IKER [email or web address]) E-signed By Rekha Quintero, PT Oswestry Index Section 1 Pain Intensity The pain comes and goes and is moderate Section 2 Personal Care (Washing,Dresing) change my way of washing or dressing in order to avoid pain Section 3 Lifting I can lift heavy weights, but it gives me extra pain Section 4 Walking I have some pain when walking but it does not increase with distance Section 5 Sitting I can sit in any chair for as long as I like Section 6 Standing I have some pain on standing, but it does not increase with time Section 7 Sleeping Because of my pain, my normal night's sleep is less than 6 hours sleep Section 8 Social Life My social life is normal but increases the degree of pain Section 9 Traveling I get some pain when traveling , but none of my usual forms of travel m Section 10 Changing Degreee of Pain My pain fluctuates, but overall is definitely getting better Score and Risk Level Oswestry Sc 10 Oswestry Risk Level Mild Disability Rehab Re-assessment Subjective Subjective Chief complaint: 4/10 LBP Compliant with HEP 24 hour pain average: 3/10 At worst: 5-6/10 At best: 0/10 Pt reports she feels 70% improved since PT IE. Objective Objective Notes MMT: BLE 4/5 ROM: Lumbar WNL, painful ext Laslett's cluster 2/5 positive 1/4 TTP lower lumbar and sacral joints 2/4 TTP lumbar paraspinals Assessment Progress Assessment Progressing as Expected Assessment Notes This is a reassessment for Zina Champagne who originally presented with Chronic LBP with intermittent BLE shooting pain. Pt gets relief with flexion based/directional preference activities, manual therapy, estim, and core activation. Pt's LBP complaints have been mild- moderate in severity with low- mod irritability since IE. Pt with improvements in symptom irritability, subjective pain at worst, and BLE strength. Pt continues to have pain with provocation to her SIJ and with spinal extension. Pt would continue to benefit from skilled OP PT to address remaining pain complaints. Patient goals met ST/6 LT/7 Plan Plan Continue POC Frequency of Therapy 1-2 times Duration of therapy 8 Time and Billing Re-Eval Time 10 Re-Eval Billing Units 1 PHYSICIAN CERTIFICATION: I certify the specified therapy services for Zina Champagne are required, authorized, and reviewed every 30 days.
== END 2023-04-16 12:00 | disposition home or self-care (01) ==
LOC: PT 11:00
PROVIDERS: Visit Provider Nurse Practitioner Family
DX: M54.50 Low back pain, unspecified (principal); M79.604 Pain in right leg; M79.605 Pain in left leg
CPT/HCPCS: 97014; 97110; 97140; 97163; 97164; 97530; G0283

== ENCOUNTER 2023-04-24 09:05 | Outpatient (CLI) | payer MEDICARE, SELFPAY ==
--- NOTE | 2023-04-24 09:06 | MM_ITS ---
PROCEDURE INFORMATION: Exam: MG Bilateral Screening 3D Mammography Exam date and time: 04/24/2023 9:56 AM Age: 67 years old Clinical indication: Screening. No family history of breast cancer. TECHNIQUE: Imaging protocol: Bilateral Screening tomosynthesis and 2D mammography including computer-aided detection (CAD) when performed. COMPARISON: No relevant prior studies available.If prior mammograms are provided, I am happy to add an addendum. FINDINGS: MAMMOGRAPHY: Breast composition: There are scattered areas of fibroglandular density. Mass: Scattered similar benign-appearing oval < 0.5 cm oval masses bilaterally. No dominant suspicious mass. Architectural distortion: None. Calcifications: No suspicious calcifications. Asymmetric density: None. Skin thickening: None. Axillary adenopathy: None. IMPRESSION: Scattered bilateral oval masses may be considered a benign finding on screening mammography. If prior mammograms are provided, am happy to an addendum. No mammographic evidence of malignancy. Annual screening is recommended unless otherwise clinically indicated. ASSESSMENT: BI-RADS Category 2: Benign.
--- NOTE | 2023-04-24 09:06 | US_ITS ---
FINAL REPORT CLINICAL HISTORY: elevated liver enzymes COMPARISON: None FINDINGS: Sonographic images of the right upper quadrant were obtained. The pancreas is partially obscured. There is fatty infiltration of the liver. Gallstones are present in the gallbladder. There is no evidence of biliary ductal dilatation.The common duct measures 3 mm. Limited images of the right kidney are unremarkable. IMPRESSION: Gallstones are present in the gallbladder without evidence of biliary ductal dilatation. Fatty infiltration of the liver. Reviewed, Interpreted and Dictated by Jose A Ley III, MD Transcribed by Mary Hines Authenticated and [facility]
--- NOTE | 2023-04-24 09:54 | XR_ITS ---
FINAL REPORT CLINICAL HISTORY: left shoulder pain COMPARISON: None FINDINGS: LEFT SHOULDER: 3 views of the left shoulder were obtained. There is no acute fracture or dislocation. There is mild AC joint degenerative change. There is no soft tissue abnormality. IMPRESSION: Mild degenerative change without acute bony abnormality. Reviewed, Interpreted and Dictated by Jose A Ley III, MD Transcribed by Lamar Cosme Authenticated and [facility]
--- NOTE | 2023-04-24 09:54 | XR_ITS ---
FINAL REPORT CLINICAL HISTORY: right shoulder pain COMPARISON: None FINDINGS: RIGHT SHOULDER: 3 views of the right shoulder were obtained. There is no acute fracture or dislocation. There is mild AC joint degenerative change. There is no soft tissue abnormality. IMPRESSION: Mild degenerative change without acute bony abnormality. Reviewed, Interpreted and Dictated by Jose A Ley III, MD Transcribed by Lamar Cosme Authenticated and [facility]
== END 2023-04-24 23:59 ==
LOC: RAD 09:06
PROVIDERS: PCP Student in an Organized Health Care Education/Training Program; Visit Provider Student in an Organized Health Care Education/Training Program
DX: R74.8 Abnormal levels of other serum enzymes (principal); Z12.31 Encounter for screening mammogram for malignant neoplasm of breast; M25.511 Pain in right shoulder; G89.29 Other chronic pain; M25.512 Pain in left shoulder
CPT/HCPCS: 73030; 76705; 77063; 77067

== ENCOUNTER 2023-06-09 08:21 | Outpatient (POV) | payer MEDICARE, SELFPAY ==
--- NOTE | 2023-06-09 08:31 | EXP.PAIN.SOA ---
[facility] Pain Management SOAP Note Subjective:: Patient is a pleasant 67-year-old female who presents today for 3-month follow-up. We are currently treating the patient for degenerative disc disease of lumbar spine with lumbar radiculopathy symptoms, lumbar facet arthropathy, lumbar spondylosis. Today she rates her pain a 7 out of 10. Patient denies any new trauma or injury. She does state that she has been maintaining her granddaughter and this is caused more overall pain. Patient does feel like once this calms down she will have improvement. Patient also states that physical therapy has been really helping however due to everything going on she has not been able to go here recently. She is planning to start this back very soon. Patient did previously have her second lumbar medial branch block in February with significant relief of more than 80%. Patient is currently managed with gabapentin 300 mg 3 times a day from an outside provider. Her Roel has been reviewed and is appropriate. Review of Systems: General: No recent weight changes, no fever, no sleep disturbances Respiratory: No cough, no shortness of air, no recurring pulmonary infections Cardiovascular/peripheral vascular: No chest pain, no palpitations, no edema, no shortness of breath Gastrointestinal: No new onset incontinence, normal bowel movements reported Genitourinary: No new onset incontinence Musculoskeletal: Low back pain Psychiatric: [Normal mood/affect] Neurological: [Denies weakness in extremities], [denies balance issues] Objective:: Physical Exam: General: Alert and oriented x3, no acute distress, pleasant and cooperative Lungs: Respirations even and unlabored, symmetrical chest expansion Eyes: PERRL Musculoskeletal: Flexion and extension of lumbar [spine] somewhat guarded secondary to pain, [antalgic gait noted] positive Kemps test Neurological: Speech clear, no gross sensory deficit Assessment:: Degenerative disc disease of lumbar spine with lumbar radiculopathy symptoms, lumbar facet arthropathy, lumbar spondylosis Plan:: We will follow-up with the patient in 3 months however I have counseled her that if the pain does not get better or seems to progressively worsen she can call us between now and her next appointment to be seen and evaluated sooner. Patient has been instructed to contact the clinic with any concerns before the next appointment. Dr. Nolan has reviewed this note and agrees with this plan of care. This note was dictated using voice recognition software and make contain errors or omissions. [facility] Disclaimer: The information contained in this section may have been updated after the patient was seen, as this information can be updated by other users. Medical History Arthritis Back pain Coronary artery disease Diabetes mellitus Dysphagia Hyperlipidemia KIESHA (obstructive sleep apnea) Surgical History H/O section H/O: hysterectomy History of wisdom tooth extraction Family History Other Cancer Coronary artery disease Diabetes Hyperlipidemia Hypertension Social History Smoking Status: Former smoker alcohol intake: current alcohol intake frequency: 0-2 drinks per day substance use type: denies use current occupational status: other Travel in the last 8 weeks: None housing: house lives independently: Yes marital status:
[2023-06-09 08:36] VITALS: BP 131/75; PULSE 65; RESP 18; O2SAT 98; BMI 38.0
== END 2023-06-09 23:59 | disposition home or self-care (01) ==
LOC: SC.PAIN 08:22
PROVIDERS: PCP Student in an Organized Health Care Education/Training Program; Visit Provider Nurse Practitioner Family
DX: M51.16 Intervertebral disc disorders with radiculopathy, lumbar region (principal); M47.26 Other spondylosis with radiculopathy, lumbar region
CPT/HCPCS: 99212; G0463

== ENCOUNTER 2023-07-01 18:00 | Outpatient (CLI) | payer MEDICARE, SELFPAY ==
[2023-07-01 18:14] LABS: Hemoglobin A1C 5.7 % (4.0-6.0)
[2023-07-01 18:51] LABS: Creatinine,Urine Random 44 mg/dL (Not Estab.); Triiodothryronine (T3) Uptake 30 % (23.5-40.5)
[2023-07-01 18:53] LABS: T4 (Thyroxine) 6.6 ug/dl (5.53-11.0)
[2023-07-01 19:01] LABS: Microalbumin < 6.000 mg/L (0-16.7)
[2023-07-01 19:07] LABS: Thyroid Stimulating Hormone 3.18 uIU/mL (0.465-4.68)
== END 2023-07-01 23:59 | disposition home or self-care (01) ==
LOC: LAB.DROPOF 07-02 08:45
PROVIDERS: PCP Student in an Organized Health Care Education/Training Program; Visit Provider Student in an Organized Health Care Education/Training Program
DX: E11.9 Type 2 diabetes mellitus without complications (principal); E03.9 Hypothyroidism, unspecified; Z79.84 Long term (current) use of oral hypoglycemic drugs
CPT/HCPCS: 82043; 82570; 83036; 84436; 84443; 84479

== ENCOUNTER 2023-07-08 14:49 | Outpatient (CLI) | payer MEDICARE, SELFPAY ==
--- NOTE | 2023-07-08 14:49 | US_ITS ---
FINAL REPORT TECHNIQUE: Real-time grayscale and color ultrasound of the thyroid was performed. CLINICAL HISTORY: hypothyroid COMPARISON: None FINDINGS: The thyroid gland measures 48 x 29 x 23 mm on the right and 45 x 17 x 16 mm on the left. The isthmus measures 6 mm. The parenchyma is unremarkable . Nodules: There is a multitude of cystic and solid nodules in both lobes of the thyroid. The dominant nodule on the right measures 9 mm, TR 3. The dominant nodule on the left measures 6 mm, TR 3. IMPRESSION: Multiple subcentimeter TR 3 nodules bilaterally. No further follow-up required per TI-RADS criteria. Reviewed, Interpreted and Dictated by Ralf Avalos MD Transcribed by Lamar Cosme Authenticated and . [facility]
== END 2023-07-08 23:59 | disposition home or self-care (01) ==
LOC: RAD 14:49
PROVIDERS: PCP Student in an Organized Health Care Education/Training Program; Visit Provider Student in an Organized Health Care Education/Training Program
DX: E03.9 Hypothyroidism, unspecified (principal)
CPT/HCPCS: 76536

== ENCOUNTER 2023-08-26 07:35 | Outpatient (CLI) | payer MEDICARE, SELFPAY ==
[2023-08-26 09:08] LABS: Thyroid Stimulating Hormone 1.63 uIU/mL (0.465-4.68)
== END 2023-08-26 23:59 | disposition home or self-care (01) ==
LOC: LAB 07:37
PROVIDERS: PCP Student in an Organized Health Care Education/Training Program; Visit Provider Physician Assistant
DX: E03.9 Hypothyroidism, unspecified (principal); R63.5 Abnormal weight gain
CPT/HCPCS: 36415; 82533; 84443

== ENCOUNTER 2023-09-08 12:54 | Outpatient (POV) | payer MEDICARE, SELFPAY ==
[2023-09-08 13:04] VITALS: BP 151/69; PULSE 78; RESP 16; O2SAT 96; BMI 37.5
--- NOTE | 2023-09-08 14:46 | EXP.PAIN.SOA ---
[facility] Disclaimer: The information contained in this section may have been updated after the patient was seen, as this information can be updated by other users. Medical History Dysphagia KIESHA (obstructive sleep apnea) Coronary artery disease Back pain Arthritis Hyperlipidemia Diabetes mellitus Surgical History History of wisdom tooth extraction H/O section H/O: hysterectomy Family History Other Cancer Coronary artery disease Diabetes Hyperlipidemia Hypertension Social History Smoking Status: Former smoker alcohol intake: current alcohol intake frequency: 0-2 drinks per day substance use type: denies use current occupational status: other Travel in the last 8 weeks: None housing: house lives independently: Yes marital status: PM Subjective & Objective Subjective Subjective:: Patient is a pleasant 67-year-old female who presents today for follow-up. Today she rates her pain a 10 out of 10. Patient denies any new trauma or injury. She does state that she is experiencing worsening pain in her bilateral shoulders. She does describe this as an aching sensation with throbbing into the upper forearms. Patient states this is been going on for years on the right side and at least a year on the left side. Patient states that she has had imaging that did show arthritis and degenerative changes. Patient does state that the pain is worse with increased activity or arm movements. Patient states in the past she has tried to do exercises using her arms and it severely aggravated her overall shoulder pain. Patient does state that on Friday she started doing some activities and felt a popping along the left side. Patient states that it is continued since. Patient does have limited range of motion and does state the pain interferes with her ability perform activities of daily living such as cooking and cleaning. Patient denies any prior surgery on her shoulders. She also states she has not ever done injections in her shoulders. Patient does state that she is still having some low back pain however it is much more manageable from her last injection of her medial branch block back in February. That was her second block and still was doing overall well in that area. Her Roel has been reviewed and is appropriate. Review of Systems: General: No recent weight changes, no fever, no sleep disturbances Respiratory: No cough, no shortness of air, no recurring pulmonary infections Cardiovascular/peripheral vascular: No chest pain, no palpitations, no edema, no shortness of breath Gastrointestinal: No new onset incontinence, normal bowel movements reported Genitourinary: No new onset incontinence Musculoskeletal: Bilateral shoulder pain Psychiatric: [Normal mood/affect] Neurological: [Denies weakness in extremities], [denies balance issues] Pain at rest (0-10 scale): 10 Objective Objective:: Physical Exam: General: Alert and oriented x3, no acute distress, pleasant and cooperative Lungs: Respirations even and unlabored, symmetrical chest expansion Eyes: PERRL Musculoskeletal: Flexion and extension of bilateral shoulders somewhat guarded secondary to pain, [antalgic gait noted] Neurological: Speech clear, no gross sensory deficit Has patient had previous pain injection?: No Conservative treatment options previously tried: Home exercise plan Length of treatment: Longer than 6 weeks Meds Home Medications and Allergies Home Medications ?Medication ?Instructions ?Recorded ?Confirmed ?Type glucosam 750 mg-chondroi 100 1 tab PO DIRECTED [employer] 04/15/22 09/08/23 History mg-hyalur 1.65 mg-CF borate 108 mg tablet (Move Free NanoAntibiotics) zinc acetate 50 mg (zinc) capsule 50 mg PO DAILY SUPPLIMENT 04/15/22 09/08/23 History (Galzin) omeprazole magnesium 20 mg 20 mg PO DAILY GERD 04/30/22 09/08/23 History tablet,delayed release (Prilosec OTC) aspirin 325 mg capsule ([place]) 325 mg PO DAILY Blood Thinner 09/19/22 09/08/23 History cholecalciferol (vitamin D3) 50 50 mcg PO DAILY SUPPLIMENT 09/19/22 09/08/23 History mcg (2,000 unit) capsule bisoprolol fumarate 5 mg tablet 5 mg PO DAILY BLOOD PRESSURE #90 11/18/22 09/08/23 Rx tabs blood-glucose meter (Accu-Chek #1 ea 03/19/23 09/08/23 Rx Guide Glucose Meter) lancets (Accu-Chek Fastclix Lancet #100 ea 03/19/23 09/08/23 Rx Drum) metformin 500 mg tablet,extended 500 mg PO BID Diabetes #120 tabs 03/24/23 09/08/23 Rx release 24 hr rosuvastatin 10 mg tablet 10 mg PO DAILY Cholesterol #90 tabs 04/14/23 09/08/23 Rx diclofenac sodium 1 % topical gel 2 g topical QID #100 grams 04/25/23 09/08/23 Rx (Voltaren Arthritis Pain) blood sugar diagnostic (Accu-Chek #50 ea 06/19/23 09/08/23 Rx Guide test strips) levothyroxine 50 mcg tablet 50 mcg PO DAILY #90 tabs 07/01/23 09/08/23 Rx empagliflozin 25 mg tablet 25 mg PO DAILY Diabetes #90 tabs 09/01/23 09/08/23 Rx (Jardiance) New Prescriptions to Start Prescriptions: Allergies Allergy/AdvReac Type Severity Reaction Status Date / Time Tetracyclines Allergy Intermediate Rash Verified 07/01/23 10:35 Assessment and Plan *Assessment and plan (1) Bilateral shoulder pain: Status: Acute Qualifiers: Chronicity: chronic Qualified Code(s): M25.511 - Pain in right shoulder; M25.512 - Pain in left shoulder; G89.29 - Other chronic pain Category: Medical Code(s): M25.511 - Pain in right shoulder; M25.512 - Pain in left shoulder Plan Patient is experiencing significant pain throughout her bilateral shoulders with limited range of motion. I have discussed with the patient that she may benefit from intra-articular shoulder injection. Risk and benefits were discussed with the patient and she would like to proceed forward with this plan of care. Patient has tried and failed conservative therapy including oral medications, heat and ice, topicals, physical therapy and continued at home stretching exercise for longer than 6 weeks. We will submit to insurance for bilateral shoulder intra-articular injections. Patient has been instructed to contact the clinic with any concerns before the next appointment. Dr. Nolan has reviewed this note and agrees with this plan of care. This note was dictated using voice recognition software and make contain errors or omissions. All injections are used with Lidocaine or Bupivacaine and Depo Medrol.
== END 2023-09-08 23:59 | disposition home or self-care (01) ==
LOC: SC.PAIN 12:56
PROVIDERS: Visit Provider Nurse Practitioner Family
DX: M25.511 Pain in right shoulder (principal); M25.512 Pain in left shoulder; G89.29 Other chronic pain; M54.50 Low back pain, unspecified; E11.9 Type 2 diabetes mellitus without complications; Z79.84 Long term (current) use of oral hypoglycemic drugs; Z73.89 Other problems related to life management difficulty
CPT/HCPCS: 99212; G0463

== ENCOUNTER → 2023-09-23 10:03 | Day surgery (SDC) | payer MEDICARE, SELFPAY ==
[2023-09-23 10:39] VITALS: BP 172/65; PULSE 72; RESP 16; O2SAT 95; BMI 37.6
--- NOTE | 2023-09-23 10:58 | P.PCN_ITS ---
Procedure Date: 09/23/23 Time: 10:40 Anesthesiologist:: Rodney Hyde CRNA Complications:: None Pre-procedure Diagnosis:: DJD bilateral shoulders. Chronic bilateral shoulder pain. Post-procedure Diagnosis:: Same. Indications for Procedure:: Patient is a pleasant 67-year-old female that comes our clinic today for bilateral intra-articular shoulder injections of cortisone and local anesthetic. Patient has 5/5 strength in each arm. However, she has limited range of motion secondary to bilateral shoulder pain. Working overhead intensifies the pain bilaterally. She rates her pain today 6/10. Procedure Details:: Procedure Details: Bilateral shoulder intra-articular injection Informed consent was obtained risk and benefits of the procedure were explained to the patient. Patient was taken to the procedure room. The bilateral shoulder was prepped using ChloraPrep. A 25-gauge needle was used first anteriorly, laterally, and then posteriorly to inject 10 mL bupivacaine 0.25% and Depo- Medrol 40 mg. Patient tolerated procedure well with no complications. Plan and Disposition:: Patient was discharged without incident.
[2023-09-23 10:59] VITALS: BP 139/65; PULSE 65; RESP 18; O2SAT 96
[2023-09-23] MEDS: LIDOCAINE 1% 5ML PF VIAL 5 ML (11:33)
[2023-09-23] MEDS: BUPIVACAINE 0.25% 10ML INJ 25 MG IJ (11:34)
[2023-09-23] MEDS: methylPREDNISolone ACETATE 80MG/ML VIAL 80 MG (11:38)
[2023-09-23 11:44] VITALS: BP 135/90; PULSE 68; RESP 18; O2SAT 98
[2023-09-23 11:45] VITALS: BP 135/90; PULSE 68; RESP 18; O2SAT 98
== END | disposition home or self-care (01) ==
PROVIDERS: PCP Student in an Organized Health Care Education/Training Program; Visit Provider Nurse Anesthetist, Certified Registered
DX: M19.011 Primary osteoarthritis, right shoulder (principal); M19.012 Primary osteoarthritis, left shoulder; M25.511 Pain in right shoulder; M25.512 Pain in left shoulder; G89.29 Other chronic pain
CPT/HCPCS: 20610; J1010

== ENCOUNTER 2023-10-09 09:08 | Outpatient (POV) | payer MEDICARE, SELFPAY ==
[2023-10-09 09:24] VITALS: BP 140/62; PULSE 80; RESP 16; O2SAT 95; BMI 35.9
--- NOTE | 2023-10-09 09:47 | A.OFFVIS_ITS ---
[facility] Disclaimer: The information contained in this section may have been updated after the patient was seen, as this information can be updated by other users. Medical History Dysphagia KIESHA (obstructive sleep apnea) Coronary artery disease Back pain Arthritis Hyperlipidemia Diabetes mellitus Surgical History History of wisdom tooth extraction H/O section H/O: hysterectomy Family History Other Cancer Coronary artery disease Diabetes Hyperlipidemia Hypertension Social History Smoking Status: Former smoker alcohol intake: current alcohol intake frequency: 0-2 drinks per day substance use type: denies use current occupational status: unemployed Travel in the last 8 weeks: None housing: house lives independently: Yes marital status: PM Subjective & Objective Subjective Subjective:: Patient is a pleasant 67-year-old female who presents today for follow-up of bilateral shoulder injection on 09/23/2023. Today she rates her pain a 0 out of 10. Patient states that she has had 100% relief following this procedure. She states that she has been able to increase her activity with overall decreased pain and feels much more functional. 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 Patient does state she has difficulty falling asleep sometimes due to the worsening muscle tension and pain. Her Roel has been reviewed and is appropriate. Review of Systems: General: No recent weight changes, no fever, no sleep disturbances Respiratory: No cough, no shortness of air, no recurring pulmonary infections Cardiovascular/peripheral vascular: No chest pain, no palpitations, no edema, no shortness of breath Gastrointestinal: No new onset incontinence, normal bowel movements reported Genitourinary: No new onset incontinence Musculoskeletal: Low back pain Psychiatric: [Normal mood/affect] Neurological: [Denies weakness in extremities], [denies balance issues] Pain at rest (0-10 scale): 0 Objective Objective:: Physical Exam: General: Alert and oriented x3, no acute distress, pleasant and cooperative Lungs: Respirations even and unlabored, symmetrical chest expansion Eyes: PERRL Musculoskeletal: Flexion and extension of lumbar [spine] somewhat guarded secondary to pain, [antalgic gait noted] Neurological: Speech clear, no gross sensory deficit Has patient had previous pain injection?: Yes Percent improvement in pain since last injection: 100% Conservative treatment options previously tried: Home exercise plan Length of treatment: Longer than 6 weeks Meds Home Medications and Allergies Home Medications ?Medication ?Instructions ?Recorded ?Confirmed ?Type glucosam 750 mg-chondroi 100 1 tab PO DIRECTED [facility] 04/15/22 10/09/23 History mg-hyalur 1.65 mg-CF borate 108 mg tablet (Move Free Spyra) zinc acetate 50 mg (zinc) capsule 50 mg PO DAILY SUPPLIMENT 04/15/22 10/09/23 History (Galzin) omeprazole magnesium 20 mg 20 mg PO DAILY GERD 04/30/22 10/09/23 History tablet,delayed release (Prilosec OTC) aspirin 325 mg capsule (Vazalore) 325 mg PO DAILY Blood Thinner 09/19/22 10/09/23 History cholecalciferol (vitamin D3) 50 50 mcg PO DAILY SUPPLIMENT 09/19/22 10/09/23 History mcg (2,000 unit) capsule bisoprolol fumarate 5 mg tablet 5 mg PO DAILY BLOOD PRESSURE #90 11/18/22 10/09/23 Rx tabs blood-glucose meter (Accu-Chek #1 ea 03/19/23 10/09/23 Rx Guide Glucose Meter) lancets (Accu-Chek Fastclix Lancet #100 ea 03/19/23 10/09/23 Rx Drum) metformin 500 mg tablet,extended 500 mg PO BID Diabetes #120 tabs 03/24/23 10/09/23 Rx release 24 hr rosuvastatin 10 mg tablet 10 mg PO DAILY Cholesterol #90 tabs 04/14/23 10/09/23 Rx diclofenac sodium 1 % topical gel 2 g topical QID #100 grams 04/25/23 10/09/23 Rx (Voltaren Arthritis Pain) levothyroxine 50 mcg tablet 50 mcg PO DAILY #90 tabs 07/01/23 10/09/23 Rx empagliflozin 25 mg tablet 25 mg PO DAILY Diabetes #90 tabs 09/01/23 10/09/23 Rx (Jardiance) blood sugar diagnostic (Accu-Chek #50 ea 09/15/23 10/09/23 Rx Guide test strips) New Prescriptions to Start Prescriptions: Allergies Allergy/AdvReac Type Severity Reaction Status Date / Time Tetracyclines Allergy Intermediate Rash Verified 09/23/23 10:39 Assessment and Plan *Assessment and plan (1) Lumbar facet arthropathy: Status: Acute Category: Medical Code(s): M47.816 - Spondylosis without myelopathy or radiculopathy, lumbar region (2) Low back pain: Status: Acute Qualifiers: Chronicity: chronic Back pain laterality: midline Sciatica presence: without sciatica Qualified Code(s): M54.50 - Low back pain, unspecified; G89.29 - Other chronic pain Category: Medical Code(s): M54.50 - Low back pain, unspecified (3) Bilateral shoulder pain: Status: Acute Qualifiers: Chronicity: chronic Qualified Code(s): M25.511 - Pain in right shoulder; M25.512 - Pain in left shoulder; G89.29 - Other chronic pain Category: Medical Code(s): M25.511 - Pain in right shoulder; M25.512 - Pain in left shoulder Plan Patient has had significant improvement following her bilateral shoulder injections and does not require any additional injection therapy at this time. Patient was counseled that I will order her a compounded cream and send in a temporary dose of baclofen 5 mg 3 times daily as needed. Patient will return to clinic in 1 month for reevaluation of symptoms and plan of care. Patient has been instructed to contact the clinic with any concerns before the next appointment. Dr. Nolan has reviewed this note and agrees with this plan of care. This note was dictated using voice recognition software and make contain errors or omissions. All injections are used with Lidocaine or Bupivacaine and Depo Medrol.
== END 2023-10-09 23:59 | disposition home or self-care (01) ==
PROVIDERS: PCP Student in an Organized Health Care Education/Training Program; Visit Provider Nurse Practitioner Family
DX: M47.816 Spondylosis without myelopathy or radiculopathy, lumbar region (principal); M54.50 Low back pain, unspecified; G89.29 Other chronic pain; M25.511 Pain in right shoulder; M25.512 Pain in left shoulder; Z87.891 Personal history of nicotine dependence; Z79.899 Other long term (current) drug therapy
CPT/HCPCS: 99212; G0463

== ENCOUNTER 2023-11-13 11:06 | Outpatient (POV) | payer MEDICARE, SELFPAY ==
--- NOTE | 2023-11-13 11:22 | A.OFFVIS_ITS ---
[facility] Disclaimer: The information contained in this section may have been updated after the patient was seen, as this information can be updated by other users. Medical History Dysphagia KIESHA (obstructive sleep apnea) Coronary artery disease Back pain Arthritis Hyperlipidemia Diabetes mellitus Surgical History History of wisdom tooth extraction H/O section H/O: hysterectomy Family History Other Cancer Coronary artery disease Diabetes Hyperlipidemia Hypertension Social History Smoking Status: Former smoker alcohol intake: current alcohol intake frequency: 0-2 drinks per day substance use type: denies use current occupational status: unemployed Travel in the last 8 weeks: None housing: house lives independently: Yes marital status: PM Subjective & Objective Subjective Subjective:: Patient is a pleasant 67-year-old female who presents today for follow-up. Today she rates her pain a 6 out of 10. She denies any new changes.She did just have bilateral shoulder injections on 09/23/2023 that did provide 100% relief. She does state that she is starting to have a little bit more aches and pains in her shoulders and primarily because she has been doing more sewing projects and feels like this is aggravating some of those symptoms. She states she has more pain in her muscles going down into her arms. At her last visit she was prescribed baclofen 5 mg 3 times daily. Today she states that this really did seem to help however more prominently in her low back versus her arms. She is requesting a refill. Patient does still use her compounded cream with additional improvement. Her Roel has been reviewed and is appropriate. Review of Systems: General: No recent weight changes, no fever, no sleep disturbances Respiratory: No cough, no shortness of air, no recurring pulmonary infections Cardiovascular/peripheral vascular: No chest pain, no palpitations, no edema, no shortness of breath Gastrointestinal: No new onset incontinence, normal bowel movements reported Genitourinary: No new onset incontinence Musculoskeletal: Left shoulder pain Psychiatric: [Normal mood/affect] Neurological: [Denies weakness in extremities], [denies balance issues] Pain at rest (0-10 scale): 6 Objective Objective:: Physical Exam: General: Alert and oriented x3, no acute distress, pleasant and cooperative Lungs: Respirations even and unlabored, symmetrical chest expansion Eyes: PERRL Musculoskeletal: Flexion and extension of left shoulder somewhat guarded secondary to pain, [antalgic gait noted] Neurological: Speech clear, no gross sensory deficit Has patient had previous pain injection?: No Conservative treatment options previously tried: Home exercise plan Length of treatment: Longer than 12 weeks Meds Home Medications and Allergies Home Medications ?Medication ?Instructions ?Recorded ?Confirmed ?Type glucosam 750 mg-chondroi 100 1 tab PO [facility]ED [facility] 04/15/22 10/09/23 History mg-hyalur 1.65 mg-CF borate 108 mg tablet (Move Free [employer]) zinc acetate 50 mg (zinc) capsule 50 mg PO DAILY SUPPLIMENT 04/15/22 10/09/23 History (Galzin) omeprazole magnesium 20 mg 20 mg PO DAILY GERD 04/30/22 10/09/23 History tablet,delayed release (Prilosec OTC) aspirin 325 mg capsule (Vazalore) 325 mg PO DAILY Blood Thinner 09/19/22 10/09/23 History cholecalciferol (vitamin D3) 50 50 mcg PO DAILY SUPPLIMENT 09/19/22 10/09/23 History mcg (2,000 unit) capsule bisoprolol fumarate 5 mg tablet 5 mg PO DAILY BLOOD PRESSURE #90 11/18/22 10/09/23 Rx tabs blood-glucose meter (Accu-Chek #1 ea 03/19/23 10/09/23 Rx Guide Glucose Meter) lancets (Accu-Chek Fastclix Lancet #100 ea 03/19/23 10/09/23 Rx Drum) metformin 500 mg tablet,extended 500 mg PO BID Diabetes #120 tabs 03/24/23 10/09/23 Rx release 24 hr rosuvastatin 10 mg tablet 10 mg PO DAILY Cholesterol #90 tabs 04/14/23 10/09/23 Rx diclofenac sodium 1 % topical gel 2 g topical QID #100 grams 04/25/23 10/09/23 Rx (Voltaren Arthritis Pain) levothyroxine 50 mcg tablet 50 mcg PO DAILY #90 tabs 07/01/23 10/09/23 Rx empagliflozin 25 mg tablet 25 mg PO DAILY Diabetes #90 tabs 09/01/23 10/09/23 Rx (Jardiance) blood sugar diagnostic (Accu-Chek #50 ea 09/15/23 10/09/23 Rx Guide test strips) baclofen 5 mg tablet 5 mg PO TID PRN muscle spasm #42 10/09/23 Rx tabs New Prescriptions to Start Prescriptions: Allergies Allergy/AdvReac Type Severity Reaction Status Date / Time Tetracyclines Allergy Intermediate Rash Verified 09/23/23 10:39 Assessment and Plan *Assessment and plan (1) Lumbar facet arthropathy: Status: Acute Category: Medical Code(s): M47.816 - Spondylosis without myelopathy or radiculopathy, lumbar region (2) Low back pain: Status: Acute Qualifiers: Back pain laterality: midline Chronicity: chronic Sciatica presence: without sciatica Qualified Code(s): M54.50 - Low back pain, unspecified; G89.29 - Other chronic pain Category: Medical Code(s): M54.50 - Low back pain, unspecified (3) Bilateral shoulder pain: Status: Acute Qualifiers: Chronicity: chronic Qualified Code(s): M25.511 - Pain in right shoulder; M25.512 - Pain in left shoulder; G89.29 - Other chronic pain Category: Medical Code(s): M25.511 - Pain in right shoulder; M25.512 - Pain in left shoulder Plan I will send in a 3-month supply of the baclofen. Patient will return to clinic in 1 month for reevaluation of symptoms and plan of care. Patient has been instructed to contact the clinic with any concerns before the next appointment. Dr. Nolan has reviewed this note and agrees with this plan of care. This note was dictated using voice recognition software and make contain errors or omissions. All injections are used with Lidocaine or Bupivacaine and Depo Medrol.
== END 2023-11-13 23:59 | disposition home or self-care (01) ==
PROVIDERS: PCP Student in an Organized Health Care Education/Training Program; Visit Provider Nurse Practitioner Family
DX: M47.816 Spondylosis without myelopathy or radiculopathy, lumbar region (principal); M54.50 Low back pain, unspecified; G89.29 Other chronic pain; M25.511 Pain in right shoulder; M25.512 Pain in left shoulder; Z87.891 Personal history of nicotine dependence; Z79.899 Other long term (current) drug therapy
CPT/HCPCS: 99212; G0463

== ENCOUNTER 2023-12-17 11:00 | Outpatient (POV) | payer MEDICARE, SELFPAY ==
[2023-12-17 11:21] VITALS: BP 127/74; PULSE 69; RESP 16; O2SAT 99; BMI 35.8
--- NOTE | 2023-12-17 12:10 | A.OFFVIS_ITS ---
[facility] Disclaimer: The information contained in this section may have been updated after the patient was seen, as this information can be updated by other users. Medical History Dysphagia KIESHA (obstructive sleep apnea) Coronary artery disease Back pain Arthritis Hyperlipidemia Diabetes mellitus Surgical History History of wisdom tooth extraction H/O section H/O: hysterectomy Family History Other Cancer Coronary artery disease Diabetes Hyperlipidemia Hypertension Social History Smoking Status: Former smoker alcohol intake: current alcohol intake frequency: 0-2 drinks per day substance use type: denies use current occupational status: other Travel in the last 8 weeks: None housing: house lives independently: Yes marital status: PM Subjective & Objective Subjective Subjective:: Patient is a pleasant 67-year-old female who presents today for follow-up. Today she rates her pain a 3 out of 10. She denies any new injury or trauma from her last visit. She states overall her shoulders are still doing pretty well from her last intra-articular injections back in September. Patient states that she did have her 46 pound dog he gets up against her left shoulder and that she is having a little bit more tingling sensations however it is still very manageable. Patient denies any other issues. Patient is currently managed with baclofen 5 mg 3 times a day along with compounded cream. Patient states that she only takes these as needed and does not need any refills at this time. Her Roel has been reviewed and is appropriate. Review of Systems: General: No recent weight changes, no fever, no sleep disturbances Respiratory: No cough, no shortness of air, no recurring pulmonary infections Cardiovascular/peripheral vascular: No chest pain, no palpitations, no edema, no shortness of breath Gastrointestinal: No new onset incontinence, normal bowel movements reported Genitourinary: No new onset incontinence Musculoskeletal: Neck pain, left shoulder pain Psychiatric: [Normal mood/affect] Neurological: [Denies weakness in extremities], [denies balance issues] Pain at rest (0-10 scale): 3 Objective Objective:: Physical Exam: General: Alert and oriented x3, no acute distress, pleasant and cooperative Lungs: Respirations even and unlabored, symmetrical chest expansion Eyes: PERRL Musculoskeletal: Flexion and extension of cervical [spine] somewhat guarded secondary to pain, [antalgic gait noted] Neurological: Speech clear, no gross sensory deficit Has patient had previous pain injection?: No Conservative treatment options previously tried: Home exercise plan Length of treatment: Longer than 12 weeks Meds Home Medications and Allergies Home Medications ?Medication ?Instructions ?Recorded ?Confirmed ?Type glucosam 750 mg-chondroi 100 1 tab PO [facility]ED [facility] 04/15/22 12/17/23 History mg-hyalur 1.65 mg-CF borate 108 mg tablet (Move Free nScaled) zinc acetate 50 mg (zinc) capsule 50 mg PO DAILY SUPPLIMENT 04/15/22 12/17/23 History (Galzin) omeprazole magnesium 20 mg 20 mg PO DAILY GERD 04/30/22 12/17/23 History tablet,delayed release (Prilosec OTC) aspirin 325 mg capsule (Vazalore) 325 mg PO DAILY Blood Thinner 09/19/22 12/17/23 History cholecalciferol (vitamin D3) 50 50 mcg PO DAILY SUPPLIMENT 09/19/22 12/17/23 History mcg (2,000 unit) capsule blood-glucose meter (Accu-Chek #1 ea 03/19/23 12/17/23 Rx Guide Glucose Meter) lancets (Accu-Chek Fastclix Lancet #100 ea 03/19/23 12/17/23 Rx Drum) metformin 500 mg tablet,extended 500 mg PO BID Diabetes #120 tabs 03/24/23 12/17/23 Rx release 24 hr rosuvastatin 10 mg tablet 10 mg PO DAILY Cholesterol #90 tabs 04/14/23 12/17/23 Rx diclofenac sodium 1 % topical gel 2 g topical QID #100 grams 04/25/23 12/17/23 Rx (Voltaren Arthritis Pain) levothyroxine 50 mcg tablet 50 mcg PO DAILY #90 tabs 07/01/23 12/17/23 Rx blood sugar diagnostic (Accu-Chek #50 ea 09/15/23 12/17/23 Rx Guide test strips) baclofen 5 mg tablet 5 mg PO TID PRN muscle spasm #90 11/13/23 12/17/23 Rx tabs bisoprolol fumarate 5 mg tablet See Rx Instructions .Route 11/24/23 12/17/23 Rx .COMPLEX #90 tabs empagliflozin 25 mg tablet 25 mg PO DAILY Diabetes #90 tabs 11/25/23 12/17/23 Rx (Jardiance) New Prescriptions to Start Prescriptions: Allergies Allergy/AdvReac Type Severity Reaction Status Date / Time Tetracyclines Allergy Intermediate Rash Verified 09/23/23 10:39 Assessment and Plan *Assessment and plan (1) Bilateral shoulder pain: Status: Acute Qualifiers: Chronicity: chronic Qualified Code(s): M25.511 - Pain in right shoulder; M25.512 - Pain in left shoulder; G89.29 - Other chronic pain Category: Medical Code(s): M25.511 - Pain in right shoulder; M25.512 - Pain in left shoulder (2) Neck pain: Status: Acute Category: Medical Code(s): M54.2 - Cervicalgia Plan Patient is doing well currently and does not require any additional interventions at this time. I did discuss with the patient that I will give her a tentative 1 month follow-up however at that time if she does not feel like she needs anything she can call and push this out further. Patient agrees with this plan of care. Patient has been instructed to contact the clinic with any concerns before the next appointment. Dr. Nolan has reviewed this note and agrees with this plan of care. This note was dictated using voice recognition software and make contain errors or omissions. All injections are used with Lidocaine or Bupivacaine and Depo Medrol.
== END 2023-12-17 23:59 | disposition home or self-care (01) ==
LOC: SC.PAIN 11:01
PROVIDERS: PCP Student in an Organized Health Care Education/Training Program; Visit Provider Nurse Practitioner Family
DX: M25.511 Pain in right shoulder (principal); M25.512 Pain in left shoulder; G89.29 Other chronic pain; M54.2 Cervicalgia; Z87.891 Personal history of nicotine dependence; Z79.84 Long term (current) use of oral hypoglycemic drugs
CPT/HCPCS: 99212; G0463

== ENCOUNTER 2024-02-24 11:52 | Outpatient (CLI) | payer MEDICARE, SELFPAY ==
[2024-02-24 18:13] LABS: Basophils # 0.1 K/mm3 (0-0.2); Basophils % 0.9 % (0.1-2.0); Eosinophils # 0.3 K/mm3 (0.0-0.4); Eosinophils % 4.2 % (0.1-12.0); Hematocrit 52.1 % (37.0-47.0); Hemoglobin 17.4 g/dL (12.2-16.2); Lymphocytes # 2.5 K/mm3 (0.7-4.5); Lymphocytes % 33.8 % (10-50); Mean Corpuscular HGB Conc 33.4 g/dL (31.8-35.4); Mean Corpuscular Hemoglobin 32.3 pg (27.0-31.2); Mean Corpuscular Volume 96.7 fl (81-99); Mean Platelet Volume 12.3 fl (7.4-10.4); Monocytes # 0.5 K/mm3 (0.1-1.0); Monocytes % 6.4 % (1.7-9.3); Neutrophils # 4.1 K/mm3 (1.8-7.8); Neutrophils % 54.3 % (37.0-80.0); Platelet Count 216 K/mm3 (142-424); Red Blood Count 5.39 M/mm3 (4.20-5.40); Red Cell Distribution Width 12.9 % (11.5-17.5); White Blood Count 7.5 K/mm3 (4.8-10.8)
[2024-02-24 18:51] LABS: Alanine Aminotransferase 130 U/L (12-78); Alkaline Phosphatase 109 U/L (38-126); Aspartate Amino Transferase 92 U/L (14-36); Bilirubin,Total 0.7 mg/dl (0.2-1.3); Blood Urea Nitrogen 19 mg/dl (7-17); Calcium 9.5 mg/dl (8.4-10.2); Carbon Dioxide 23 mmol/L (22.0-30.0); Chloride 108 mmol/L (98-107); Chol/HDL Ratio 2.6 (1-3.5); Cholesterol 124 mg/dl (140-200); Estimated Glomerular Filt Rate 72 ml/min (>60); GFR (African American) 87 ML/MIN (>60); Glucose 110 mg/dl (74-100); HDL Cholesterol 48 mg/dl (40-60); Sodium 143 mmol/L (136-145); Total Protein,Serum 6.4 g/dl (6.3-8.2); Triglycerides 233 mg/dl (30-150); VLDL Cholesterol 47 mg/dL (0-40)
[2024-02-24 19:10] LABS: Albumin Level 4.4 g/dl (3.5-5.0); Albumin/Globulin Ratio 2.2 (1.1-1.8); Anion Gap 16.4 mEq/L (5-15); Potassium 4.4 mmoL/L (3.5-5.1)
[2024-02-24 19:14] LABS: 25-OH Vitamin D, Total 66.7 ng/mL (30-100)
[2024-02-24 19:22] LABS: Creatinine,Urine Random 72 mg/dL (Not Estab.); Microalbumin < 6.000 mg/L (0-16.7)
[2024-02-24 19:25] LABS: Direct LDL Cholesterol 62.21 mg/dL (100-129)
[2024-02-24 19:50] LABS: Hemoglobin A1C 5.6 % (4.0-6.0); Thyroid Stimulating Hormone 1.73 uIU/mL (0.465-4.68)
[2024-02-24 19:55] LABS: HIV Combo NEGATIVE (Negative)
[2024-02-24 20:04] LABS: Hepatitis C Ab Qual. W/ RFX NEGATIVE (Negative)
== END 2024-02-24 23:59 | disposition home or self-care (01) ==
LOC: LAB.DROPOF 02-25 13:16
PROVIDERS: PCP Student in an Organized Health Care Education/Training Program; Visit Provider Student in an Organized Health Care Education/Training Program
DX: E13.69 Other specified diabetes mellitus with other specified complication (principal); E03.8 Other specified hypothyroidism; E55.9 Vitamin D deficiency, unspecified; Z11.4 Encounter for screening for human immunodeficiency virus [HIV]; Z11.59 Encounter for screening for other viral diseases; E78.5 Hyperlipidemia, unspecified
CPT/HCPCS: 80053; 80061; 82043; 82306; 82570; 83036; 84443; 85025; 86803; 87389

== ENCOUNTER 2024-03-23 07:42 | Outpatient (CLI) | payer MEDICARE, SELFPAY ==
--- NOTE | 2024-03-23 07:43 | US_ITS ---
FINAL REPORT TECHNIQUE: Multiple transverse and longitudinal images CLINICAL HISTORY: Elevated liver enzymes/fatty liver COMPARISON: 04/24/2023 FINDINGS: Diffuse fatty infiltration of the liver is present. There are gallstones present in the gallbladder, a few measuring up to 1 cm in the dependent portion of the gallbladder. No gallbladder wall thickening is identified and the common bile duct measures 2 mm in diameter. Limited portions of the right kidney are unremarkable. IMPRESSION: Fatty infiltration of the liver. Gallstones remain present in the gallbladder, a few measuring up to 1 cm in size. There is no evidence of acute gallbladder disease. Reviewed, Interpreted and Dictated by Magda Sherman MD Transcribed by Mary Hines Authenticated and [facility]
== END 2024-03-23 23:59 | disposition home or self-care (01) ==
LOC: RAD 07:43
PROVIDERS: PCP Nurse Practitioner Family; Visit Provider Nurse Practitioner Family
DX: R74.8 Abnormal levels of other serum enzymes (principal)
CPT/HCPCS: 76705

== ENCOUNTER 2024-04-20 12:55 | Outpatient (CLI) | payer MEDICARE, SELFPAY ==
[2024-04-20 13:17] LABS: Basophils # 0.1 K/mm3 (0-0.2); Basophils % 0.9 % (0.1-2.0); Eosinophils # 0.2 K/mm3 (0.0-0.4); Eosinophils % 2.2 % (0.1-12.0); Hematocrit 50.5 % (37.0-47.0); Hemoglobin 17.2 g/dL (12.2-16.2); Lymphocytes # 2.2 K/mm3 (0.7-4.5); Lymphocytes % 33.2 % (10-50); Mean Corpuscular HGB Conc 34.1 g/dL (31.8-35.4); Mean Corpuscular Hemoglobin 32.5 pg (27.0-31.2); Mean Corpuscular Volume 95.3 fl (81-99); Mean Platelet Volume 11.2 fl (7.4-10.4); Monocytes # 0.4 K/mm3 (0.1-1.0); Monocytes % 6.4 % (1.7-9.3); Neutrophils # 3.8 K/mm3 (1.8-7.8); Neutrophils % 56.9 % (37.0-80.0); Platelet Count 221 K/mm3 (142-424); Red Cell Distribution Width 12.3 % (11.5-17.5); White Blood Count 6.7 K/mm3 (4.8-10.8)
[2024-04-20 19:33] LABS: Alanine Aminotransferase 115 U/L (12-78); Albumin Level 4.3 g/dl (3.5-5.0); Alkaline Phosphatase 82 U/L (38-126); Anion Gap 10.2 mEq/L (5-15); Aspartate Amino Transferase 76 U/L (14-36); Bilirubin,Total 0.7 mg/dl (0.2-1.3); Blood Urea Nitrogen 18 mg/dl (7-17); Calcium 9.1 mg/dl (8.4-10.2); Carbon Dioxide 28 mmol/L (22.0-30.0); Chloride 106 mmol/L (98-107); Estimated Glomerular Filt Rate 83 ml/min (>60); GFR (African American) 101 ML/MIN (>60); Globulin 2.1 g/dL (1.3-3.2); Glucose 153 mg/dl (74-100); Potassium 4.2 mmoL/L (3.5-5.1); Sodium 140 mmol/L (136-145); Total Protein,Serum 6.4 g/dl (6.3-8.2)
[2024-04-21 05:13] LABS: HBsAg Screen Negative (Negative); HCV Ab Non Reactive (Non Reactive); Hep A Ab, IGM Negative (Negative); Hep B Core Ab, IgM Negative (Negative)
[2024-04-23 03:48] LABS: ALT (SGPT) P5P 108 IU/L (0-40); AST (SGOT) P5P 69 IU/L (0-40); Alpha 2-Macroglobulins, Qn 271 mg/dL (110-276); Apolipoprotein A-1 183 mg/dL (116-209); Bilirubin, Total 0.6 mg/dL (0.0-1.2); Cholesterol, Total 201 mg/dL (100-199); Fibrosis Score 0.48 (0.00-0.21); Fibrosis Stage F1-F2 (.); GGT 50 IU/L (0-60); Glucose 166 mg/dL (70-99); Haptoglobin 59 mg/dL (37-355); NASH Score 0.89 (0.00-0.25); Steatosis Score 0.77 (0.00-0.40); Triglycerides 152 mg/dL (0-149)
== END 2024-04-20 23:59 | disposition home or self-care (01) ==
LOC: LAB 12:57
PROVIDERS: PCP Nurse Practitioner Family; Visit Provider Nurse Practitioner Family
DX: R74.8 Abnormal levels of other serum enzymes (principal)
CPT/HCPCS: 36415; 80053; 80074; 82172; 82247; 82465; 82947; 82977; 83010; 83883; 84450; 84460; 84478; 85025; 86803

== ENCOUNTER 2024-06-14 12:49 | Outpatient (CLI) | payer MEDICARE, SELFPAY ==
--- OUTSIDE RECORDS SUMMARY | 2024-06-14 12:52 | XMS_ITS | Data Portability ---
Author Organization [facility] [place] [facility] Address [address] [place] [address] Care Team Providers Care Hall Supervisor Name Role Phone BILL FLORES Referring Provider [phone] Assessment No assessment recorded. Plan of Treatment Reminders Order Date Submit Date Provider Last Modified By Organization Details Last Modified Time Details Appointments None record ed. Lab None record ed. Referral None record ed. Procedures None record ed. Surgeries None record ed. Imaging None record ed. Medication Orders None record ed. Patient TargetsNo targets recorded. Patient InstructionsNo instructions recorded. Reason for Referral None Reported. Procedures Surgical History Date Name Laterality Status Provider Name and Address Organization Details Recorded Time delivery completed [facility] 08/06/2023 13:04:33 Total Hysterectomy completed [facility] 08/06/2023 13:05:06 Imaging Results None recorded. Procedure Notes None recorded. Medical Equipment None Reported. Allergies Allergen ID Allergen Name Allergen Category Reaction Reaction Severity Criticality Documentation Date Start Date Code Code System Note Provider Name and Address Organization Details Recorded Time [id number] Medicinal product containin g tetracycl ine structure and acting as antibacte rial agent (product) medicatio n Not available Not available Not available 08/06/2023 [id number] SNOMED [facility] 12:58:20 Medications Name Sig Start Date Stop Date Status Note LastModified by Organization Details LastModified Time metformin 500 mg tablet Take 1 tablet twice a day by oral route. active Not Available Not Available No t Available bisoprolol fumarate 5 mg tablet Take 1 tablet every day by oral route. active Not Available Not Available No t Available levothyroxine 50 mcg tablet Take 1 tablet every day by oral route. active Not Available Not Available No t Available rosuvastatin 10 mg tablet Take 1 tablet every day by oral route. active Not Available Not Available No t Available Prilosec OTC 20 mg tablet,delayed release Take by oral route. active Not Available Not Available No t Available cetirizine 10 mg capsule Take by oral route. active Not Available Not Available No t Available Jardiance 25 mg tablet Take 1 tablet every day by oral route. active Not Available Not Available No t Available [facility] active Not Available Not Available Not Available Vazalore 81 mg capsule Take 1 capsule every day by oral route. active Not Available Not Available No t Available Vitals Date Recorded Body weight Heart rate Oxygen saturation Oxygen saturation in Arterial blood by Pulse oximetry Systolic blood pressure Diastolic blood pressure Provider Name and Address Organization Details Last Updated DateTime 4 25920.9 9 g 68 /min 97 % 97 % 124 mm[Hg] 84 mm[Hg] [facility] 13:07[facility]28 Social History Question Answer Notes LastModified by Organizat ion Details LastModified Time Tobacco Smoking Status Former Smoker quit about 26 years [facility] 08/06/2023 13:03:22 What Was The Date Of Your Most Recent Tobacco Screening? 08/06/2023 [email or web address] Information not available 08/06/2023 Sex: Female Functional Status None recorded. Mental Status None recorded. Family History Nothing Reported. Medical History No medical history recorded. Gynecological HistoryNo gynecological history recorded. 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 ANA1:80neg ative lupus panel Pruritic rash 20246365 L 28.2 comes and goes on the eyelids, elbows, behind kneeson right arm near wristimpro juan but comes and goes Psoriasis of nail 676157 005 L62 appears to be psoriasisc ontinues with worsening despite treating it for nail fungus which may not be necessary Health Concerns Section Related Observation LastModified by Organization Detai ls LastModified Time None Recorded Concern Status LastModified by Organization Details LastModified Time None Recorded Advance Directives Directive None Recorded Payers Encounter Date Sequence Insurance Name Policy Number Policy Santiago Covered Member ID Santiago Member ID Guarantor Name 08/06/2023 1 [employer] - [employer]US (MEDICARE REPLACEMENT HMO) Zina Gina Oldread [id number] Radha Fuentes Oldread Notes Date Note Type Note Provider Name and Address Organization Details Recorded Time 08/06/2023 text/html new patient here for initial evaluation for a positive TELMA; she has bilateral shoulder and back pain; she did have some rashes that come and goes with rashes on the eye lids, elbows and behind the knees; she reports no known family history of this; she does have all others are negative GENNY ENGLE, SHANK PINNER [address] [place], [address], [facility] 08/06/2023 13:39:52 OBGyn Episode No OBEpisode recorded.
[2024-06-14 14:04] LABS: Alanine Aminotransferase 99 U/L (12-78); Alkaline Phosphatase 92 U/L (38-126); Aspartate Amino Transferase 75 U/L (14-36); Bilirubin,Total 0.8 mg/dl (0.2-1.3); Calcium 9.5 mg/dl (8.4-10.2); Carbon Dioxide 26 mmol/L (22.0-30.0); Glucose 101 mg/dl (74-100); Potassium 4.7 mmoL/L (3.5-5.1)
[2024-06-14 14:05] LABS: Albumin Level 4.6 g/dl (3.5-5.0); Albumin/Globulin Ratio 1.9 (1.1-1.8); Anion Gap 9.7 mEq/L (5-15); Blood Urea Nitrogen 20 mg/dl (7-17); Chloride 111 mmol/L (98-107); Estimated Glomerular Filt Rate 72 ml/min (>60); GFR (African American) 87 ML/MIN (>60); Globulin 2.4 g/dL (1.3-3.2); Sodium 142 mmol/L (136-145)
== END 2024-06-14 23:59 | disposition home or self-care (01) ==
LOC: LAB 12:50
PROVIDERS: PCP Nurse Practitioner Family; Visit Provider Nurse Practitioner Family
DX: K75.81 Nonalcoholic steatohepatitis (NASH) (principal)
CPT/HCPCS: 80053

== ENCOUNTER 2024-07-09 10:05 | Outpatient (CLI) | payer MEDICARE, SELFPAY ==
[2024-07-09 17:29] LABS: Creatinine,Urine Random 77 mg/dL (Not Estab.)
[2024-07-09 17:35] LABS: Microalbumin < 6.000 mg/L (0-16.7)
[2024-07-09 17:36] LABS: Hemoglobin A1C 5.2 % (4.0-6.0)
[2024-07-09 17:53] LABS: Alanine Aminotransferase 62 U/L (12-78); Albumin Level 4.3 g/dl (3.5-5.0); Alkaline Phosphatase 80 U/L (38-126); Anion Gap 14.5 mEq/L (5-15); Aspartate Amino Transferase 53 U/L (14-36); Bilirubin,Total 0.9 mg/dl (0.2-1.3); Blood Urea Nitrogen 15 mg/dl (7-17); Calcium 9.3 mg/dl (8.4-10.2); Carbon Dioxide 25 mmol/L (22.0-30.0); Chloride 107 mmol/L (98-107); Estimated Glomerular Filt Rate 72 ml/min (>60); GFR (African American) 87 ML/MIN (>60); Globulin 2.1 g/dL (1.3-3.2); Glucose 83 mg/dl (74-100); Potassium 4.5 mmoL/L (3.5-5.1); Sodium 142 mmol/L (136-145); Total Protein,Serum 6.4 g/dl (6.3-8.2)
[2024-07-09 18:08] LABS: Free T4 (Free Thyroxine) 1.43 ng/dl (0.78-2.19)
[2024-07-09 18:23] LABS: Thyroid Stimulating Hormone 0.03 uIU/mL (0.465-4.68)
[2024-07-11 08:10] LABS: Triiodothyronine (T3) Free 3.9 pg/mL (2.0-4.4)
--- OUTSIDE RECORDS SUMMARY | 2024-07-12 10:07 | XMS_ITS | Data Portability ---
Author Organization [facility] TITO Hunt [place] CLOSED Address [address] [place] [address] Care Team Providers Care Specialist Field Engineer Name Role Phone BILL FLORES Referring Provider [phone] Assessment No assessment recorded. Plan of Treatment [...] Address Organization Details Recorded Time delivery completed [facility] 08/06/2023 13:04:33 Total Hysterectomy completed [facility] 08/06/2023 13:05:06 Imaging Results None recorded. Procedure Notes None recorded. Medical Equipment None Reported. Allergies Allergen ID Allergen Name Allergen Category Reaction Reaction Severity Criticality Documentation Date Start Date Code Code System Note Provider Name and Address Organization Details Recorded Time 632701 Medicinal product containin g tetracycl ine structure and acting as antibacte rial agent (product) medicatio n Not available Not available Not available 08/06/2023 52900 1004 [place]ED [facility]58:[place] Medications Name Sig Start Date Stop [...] Not Available Not Available No t Available [facility] active Not Available Not Available Not Available Vazalore 81 mg capsule Take 1 capsule every day by oral route. active Not Available Not Available No t Available Vitals Date Recorded Body weight Heart rate Oxygen saturation Oxygen saturation in Arterial blood by Pulse oximetry Systolic blood pressure Diastolic blood pressure Provider Name and Address Organization Details Last Updated DateTime 4 14822.9 9 g 68 /min 97 % 97 % 124 mm[Hg] 84 mm[Hg] [facility] 4 13:07:28 Social History Question Answer Notes LastModified by Organizat ion Details LastModified Time Tobacco Smoking Status Former Smoker quit about 26 years [facility] 08/06/2023 13:03:22 What Was The Date Of [...] SNOMED-CT Code Diagnosis ICD10 Code Diagnosis Note [id number] GENNY ENGLE APRN RHEUMATOL OGY [address] [place] [address] 08/06/2023 12:40:21 08/07/2023 04:58:46 Anti-nuclear factor detected 101081932 R76.8 positive ANA1:80neg ative lupus panel Pruritic rash 86634024 L 28.2 comes and goes on the eyelids, elbows, behind kneeson right arm near wristimpro juan but comes and goes Psoriasis of nail 817230 005 L62 appears to be psoriasisc ontinues with worsening despite treating it for nail fungus which may not be necessary Health Concerns Section Related Observation LastModified by Organization Detai ls LastModified Time None Recorded Concern Status LastModified by Organization Details LastModified Time None Recorded Advance Directives Directive None Recorded Payers Insurance Date Sequence Insurance Name Policy Number Policy Satniago Covered Member ID Santiago Member ID Guarantor Name 08/06/2023 1 [employer] - GOLD PLUS (MEDICARE REPLACEMENT/A DVANTAGE - HMO) Zina Gina Oldread [id number] Radha Fuentes Oldread Notes Date Note Type [...] have all others are negative GENNY ENGLE, IRRIGATION DISTRICT MANAGER [address] [place], [address], [facility] 08/06/2023 13:39:52 OBGyn Episode No OBEpisode recorded.
== END 2024-07-09 23:59 | disposition home or self-care (01) ==
LOC: LAB.DROPOF 07-12 10:06
PROVIDERS: PCP Nurse Practitioner Family; Visit Provider Nurse Practitioner Family
DX: E03.8 Other specified hypothyroidism (principal); E13.69 Other specified diabetes mellitus with other specified complication; K74.00 Hepatic fibrosis, unspecified
CPT/HCPCS: 80053; 82043; 82570; 83036; 84436; 84439; 84443; 84481

== ENCOUNTER 2024-07-22 09:01 | Outpatient (POV) | payer MEDICARE, SELFPAY ==
--- OUTSIDE RECORDS SUMMARY | 2024-07-22 09:10 | XMS_ITS | Clinical Summary ---
Author Organization [facility] Address [address] [place] [address] Care Team Providers Care Industrial Boilermaker Name Role Phone Albania Galeano Primary Care Provider [phone] Allergies Active Allergy Reactions Criticality Noted Date Comments Tetracycline Rash Low 08/01/2023 Medications bisoprolol (Zebeta) 5 MG tablet Take 1 tablet (5 mg) by mouth 1 (one) time each day. 4 Active Jardiance 25 MG Take 1 tablet (25 mg) by mouth 1 (one) time each day. 4 Active Accu-Chek Guide test strip 1 each by Other route if needed. 4 Active Accu-Chek Softclix Lancets lancets by Other route. 4 Active levothyroxine (Synthroid, Levoxyl) 50 MCG tablet Take 1 tablet (50 mcg) by mouth 1 (one) time each day before breakfast. 4 Active metFORMIN XR (Glucophage-XR) 500 MG 24 hr tablet Take 1 tablet (500 mg) by mouth 1 (one) time each day with dinner. 4 Active rosuvastatin (Crestor) 10 MG tablet Take 1 tablet (10 mg) by mouth 1 (one) time each day. 4 Active mometasone (Elocon) 0.1 % ointment Apply topically 1 (one) time each day. 4 Active omeprazole (PriLOSEC) [address] capsule Take 1 capsule (20 mg) by mouth 1 (one) time each day. Do not crush or chew. Active aspirin 81 MG EC tablet Take 1 tablet (81 mg) by mouth 1 (one) time each day. Active dexamethasone (Decadron) 1 MG tabletIndicatio ns:Abnormal weight gain Take 1 tablet when directed 1 tablet 1 4 Active baclofen (Lioresal) 10 MG tablet Take 0.5 tablets (5 mg) by mouth 3 (three) times a day. Active Active Problems No known active problems Family History Medical History Relation Name Comments Alzheimer's disease Father Cardiac history Mother Relation Name Status Comments Father Mother Social History Tobacco Use Types Packs/Day Years Used Date Smoking Tobacco: Never Smokeless Tobacco: Never Alcohol Use Standard Drinks/Week Comments Yes 0 (1 standard drink = 0.6 oz pur e alcohol) Comments No Sex and Gender Information Value Date Recorded Sex Assigned at Not on file Legal Sex Female 10:55 AM EDT Gender Identity Not on file Sexual Orientation Not on file Last Filed Vital Signs Vital Sign Reading Time Taken Comments Blood Pressure 135/81 12/01/2023 12:59 PM EDT Pulse 74 12/01/2023 12:59 PM EDT Temperature - - Respiratory Rate - - Oxygen Saturation - - Inhaled Oxygen Concentration - - Weight 92.4 kg (203 lb 11.3 oz) 024 12:59 PM EDT Height 157.5 cm (5' 2 ) 12/01/2023 12:5 9 PM EDT Body Mass Index 37.26 12/01/2023 12:59 PM EDT Plan of Treatment Health Maintenance Due Date Last Done Comments [facility]-Bone Density Scan 1955 [facility]-Depression Screening 1955 [facility]-Hepatitis C Screening 1955 [facility]-Medicare Annual Wellness (AWV) 1955 [facility]-/Child/Adol SDOH Screenings 1955 [id number] Vaccine (#1) 1961 Diabetes: Dental Exam 1966 [facility]- SDOH Screenings 1974 [facility]-Adult SDOH Screenings 1974 [facility]-DTaP,Tdap,and Td Vaccine s (1 - Tdap) 12/19/1975 [facility]-Pneumococcal Vaccine: 50 + Years (1 of 2 - PCV) 12/19/1975 CT Colonography 2001 Colonoscopy 2001 FIT-DNA 2001 FIT 2001 FOBT 2001 Sigmoidoscopy 2001 [facility]-Colorectal Cancer Screening 2001 [facility]-Breast Cancer Screening 2006 [facility]-Zoster Vaccines (1 of 2) 2006 [facility]-RSV Vaccine: 60+ Years o r (1 - Risk 60-74 years 1-dose series) 2016 [facility]-Diabetes: Hemoglobin A1C 05/30/2024 12/01/2023 [facility]-Influenza Vaccine (Seaso n Ended) 2024 [facility]-Obesity Intervention Completed 024, 08/01/2023, 08/01/2023 HPV Vaccines Aged Out No longer eligi ble based on patient's age to complete this topic [facility]-HIB Vaccines Aged Out No longer e ligible based on patient's age to complete this topic [facility]-Hepatitis A Vaccines Aged Out No longer eligible based on patient's age to complete this topic [facility]-IPV Vaccines Aged Out No longer e ligible based on patient's age to complete this topic [facility]-Rotavirus Vaccines Aged Out No lo nger eligible based on patient's age to complete this topic Procedures Procedure Name Priority Date/Time Associated Diagnosis Comments POCT GLYCOSYLATED HEMOGLOBIN (HGB A1C) Routine 12/01/2023 1:29 PM EDT Healthcare maintenance from Last 3 Months or Most Recently Relevant to Health Maintenance Results * POCT glycosylated hemoglobin (Hb A1C) (12/01/2023 1:29 PM EDT) POCT Hemoglobin A1C 6.1 <5.7% Non-Diabet ic % [facility] Kit Lot Number [id number] [facility] Kit Expiration Date 09/2023 [facility] Blood Venous blood specimen / Unknown 12/01/2023 1:29 PM EDT Judit Godinez MD POINT OF CARE TEST ENTER/EDIT ORDERABLES Final Result [facility] [address] [place] [address] from Last 3 Months or Most Recently Relevant to Health Maintenance Insurance [facility] MEDICARE Care Teams Industrial Boilermaker Relationship Specialty Start Date End Date Albania Galeano PA [address] [place] [address] PCP - General 07/03/23
--- OUTSIDE RECORDS SUMMARY | 2024-07-22 09:10 | XMS_ITS ---
Laboratory report Created on: July 13, 2024 BENJAMIN MUSA : 1955 Sex: Female Author Organization Unknown PROBLEMS Problems List Code Description RESULTS Laboratory Orders Date Order Code Test 2024-07-09 [id number] TRIIODOTHYRONINE (T3), FREE Laboratory Results Date LOINC Test Value Unit Reference Range Interpre tation 2024-07-09 3051-0 TRIIODOTHYRONINE (T3), FREE 3.9 PG/ML 2.0-4.4
--- OUTSIDE RECORDS SUMMARY | 2024-07-22 09:10 | XMS_ITS | Encounter Summary ---
Author Organization [facility] Address [address] [place] [address] Care Team Providers Care Service Officer Name Role Phone Albania Galeano Primary Care Provider Reason for Referral * Consultation (Routine) - Authorized Specialty Diagnoses / Procedures Referred By Etelvina t Referred To Contact Dentist / Pain Medicine Diagnoses Obstructive sleep apnea (adult) (pediatric) Nakia Rascon MD [address] [place] [address] Phone: tel: fax: Aggie Day, DDS [address] [place] [address] Phone: tel: fax: Referral ID Status Reason Start Date Expiration Date V isits Requested Visits Authorized [id number] Authorized 03/27/2023 09/25/2024 1 1 Encounter Details Date Type Department Care Team (Late st Contact Info) Description 03/27/2023 Community [facility] [address] [place] [address] Nakia Rascon MD [address] [place] [address] Obstructive sleep apnea (adult) (pediatric) (Primary Dx) Social History Tobacco Use Types Packs/Day Years Used Date Smoking Tobacco: Never Assessed Comments Unknown Sex and Gender Information Value Date Recorded Sex Assigned at Not on file Legal Sex Female 10:55 AM EDT Gender Identity Not on file Sexual Orientation Not on file documented as of this encounter Plan of Treatment Scheduled Referrals Name Type Priority Associated Diagnoses Order Schedule Ambulatory Referral to Orofacial Pain Outpatient Referral Routine Obstructive sleep apnea (adult) (pediatric) Expected: 03/27/2023 (Approximate), Expires: 09/24/2024 documented as of this encounter Visit Diagnoses Diagnosis Obstructive sleep apnea (adult) (pediatric)- Primary documented in this encounter Care Teams Service Officer Relationship Specialty Start Date End Date Albania Galeano PA [address] [place] [address] PCP - General 07/03/23 documented as of this encounter
--- OUTSIDE RECORDS SUMMARY | 2024-07-22 09:10 | XMS_ITS | Patient Health Record ---
Author Organization [facility] Address [address] [place] [address] Care Team Providers Care Track Inspector Name Role Phone PCP, Does not have a Primary Care Provider Unava ilable Allergies No Known Allergies Reason For Referral No Information Plan Of Treatment No Information Insurance Providers Payer Name Payer Address Payer Phone Subscriber Number Group Number Insured Name Patient Relationship to Insured Coverage Start Date Coverage End Date Self Pay [id number] [place] [address] null, null Self - patient is the insured 2 [employer] [address] [place] [address] [id number] MARY GRACESHEELA HARTMANTI Self - patient is the insured 2
[2024-07-22 09:14] VITALS: BP 135/71; PULSE 58; RESP 14; O2SAT 94; BMI 34.4
--- NOTE | 2024-07-22 10:35 | A.OFFVIS_ITS ---
[facility] Disclaimer: The information contained in this section may have been updated after the patient was seen, as this information can be updated by other users. Medical History Dysphagia KIESHA (obstructive sleep apnea) Coronary artery disease Back pain Arthritis Hyperlipidemia Diabetes mellitus Surgical History History of wisdom tooth extraction H/O section H/O: hysterectomy Family History Other Cancer Coronary artery disease Diabetes Hyperlipidemia Hypertension Social History Smoking Status: Former smoker alcohol intake: current alcohol intake frequency: 0-2 drinks per day substance use type: denies use current occupational status: other Travel in the last 8 weeks?: None housing: house lives independently: Yes marital status: PM Subjective & Objective Subjective Subjective:: Patient is a pleasant 68-year-old female who presents today for worsening pain. She rates her pain a 9 out of 10. Patient states this is all over her multiple joints including her shoulders and knees and elbows. Patient does state that the shoulders are worse than any of the rest and that it is interfering with her ability perform activities of daily living such as cooking and cleaning. Patient has had injections in the past and they were very beneficial however it has been since December. Patient would like to see about getting scheduled for repeat injections. Patient is prescribed baclofen 5 mg 3 times a day along with compounded cream. Her Roel has been reviewed and is appropriate. Review of Systems: General: No recent weight changes, no fever, no sleep disturbances Respiratory: No cough, no shortness of air, no recurring pulmonary infections Cardiovascular/peripheral vascular: No chest pain, no palpitations, no edema, no shortness of breath Gastrointestinal: No new onset incontinence, normal bowel movements reported Genitourinary: No new onset incontinence Musculoskeletal: Bilateral shoulder pain, knee pain, elbow pain Psychiatric: [Normal mood/affect] Neurological: [Denies weakness in extremities], [denies balance issues] Pain at rest (0-10 scale): 9 Objective Objective:: Physical Exam: General: Alert and oriented x3, no acute distress, pleasant and cooperative Lungs: Respirations even and unlabored, symmetrical chest expansion Eyes: PERRL Musculoskeletal: Flexion and extension of bilateral shoulder pain somewhat guarded secondary to pain, [antalgic gait noted] Neurological: Speech clear, no gross sensory deficit Has patient had previous pain injection?: No Conservative treatment options previously tried: Home exercise plan Length of treatment: Longer than 12 weeks Meds Home Medications and Allergies Home Medications ?Medication ?Instructions ?Recorded ?Confirmed ?Type omeprazole magnesium 20 mg 20 mg PO DAILY GERD 3 07/22/24 History tablet,delayed release (Prilosec OTC) aspirin 325 mg capsule (Vazalore) 325 mg PO DAILY Bloo d Thinner 09/19/22 07/22/24 History cholecalciferol (vitamin D3) 50 50 mcg PO DAILY SUPPLI MENT 09/19/22 07/22/24 History mcg (2,000 unit) capsule blood-glucose meter (Accu-Chek #1 ea 03/19/23 07/22/24 Rx Guide Glucose Meter) lancets (Accu-Chek Fastclix Lancet #100 ea 03/19/23 Rx Drum) rosuvastatin 10 mg tablet 10 mg PO DAILY Cholesterol # 90 tabs 04/14/23 07/22/24 Rx Held on 03/16/24. Instructions: elevated lft's bisoprolol fumarate 5 mg tablet See Rx Instructions .R oute 11/24/23 07/22/24 Rx .COMPLEX #90 tabs metformin 500 mg tablet,extended 500 mg PO BID Diabete s #120 tabs 01/12/24 07/22/24 Rx release 24 hr clobetasol 0.05 % topical ointment 1 applic topical DIRECTED 04/28/2402/03 History sitagliptin phosphate 100 mg 100 mg PO DAILY #30 tabs 05/17/24 07/22/24 Rx tablet (Januvia) Bacillus coagulans-inulin 1 1 cap PO DAILY 06/14/24 History billion cell-250 mg capsule (Probiotic with Prebiotic) coenzyme Q10 100 mg capsule 200 mg PO DAILY 06/14/24 0 07/22/24 History (CoQ-10) eszopiclone 1 mg tablet (Lunesta) 1 mg PO HS #30 tabs 07/09/24 07/22/24 Rx baclofen 5 mg tablet See Rx Instructions .Route 0 07/12/24 07/22/24 Rx .COMPLEX #90 tabs blood sugar diagnostic (Accu-Chek #50 ea 07/12/2407/11 Rx Guide test strips) levothyroxine 50 mcg tablet 50 mcg PO DAILY #30 tabs 0 07/12/24 07/22/24 Rx New Prescriptions to Start Prescriptions: Allergies Allergy/AdvReac Type Severity Reaction Status Date / Time Tetracyclines Allergy Intermediate Rash Verified 07/09/24 14:04 Assessment and Plan *Assessment and plan (1) Bilateral shoulder pain: Status: Acute Qualifiers: Chronicity: chronic Qualified Code(s): M25.511 - Pain in right shoulder; M25.512 - Pain in left shoulder; G89.29 - Other chronic pain Category: Medical Code(s): M25.511 - Pain in right shoulder; M25.512 - Pain in left shoulder Plan Patient is experiencing worsening pain in her bilateral shoulders with limited range of motion and popping with lection and extension. I did discuss with the patient that I do believe she would benefit from bilateral shoulder intra- articular injections. Risk and benefits were discussed with the patient and she would like to proceed forward with this plan of care. I did go back and look in her actual last injections for her shoulders was actually in September 2023 that did provide approximately 100% relief and lasted more than 6 months. Patient has continued conservative therapy including oral medications, heat and ice, topicals, previous physical therapy and continued at home stretching exercise for longer than 12 weeks that was physician guided. We will submit for insurance for bilateral shoulder intra-articular injections. These will be done without fluoroscopic guidance or ultrasound. Patient has been instructed to contact the clinic with any concerns before the next appointment. Dr. Nolan has reviewed this note and agrees with this plan of care. This note was dictated using voice recognition software and make contain errors or omissions. All injections are used with Lidocaine, Bupivacaine and dexamethasone. Occasionally urine drug screen is needed to verify patient's compliance with our office pain contract. This is ordered based off specific treatments related to chronic pain with the potential to abuse certain medications.
== END 2024-07-22 23:59 | disposition home or self-care (01) ==
PROVIDERS: PCP Nurse Practitioner Family; Visit Provider Nurse Practitioner Family
DX: M25.511 Pain in right shoulder (principal); M25.512 Pain in left shoulder; G89.29 Other chronic pain; Z79.899 Other long term (current) drug therapy
CPT/HCPCS: 99212; G0463

== ENCOUNTER 2024-08-17 14:32 | Day surgery (SDC) | payer MEDICARE, SELFPAY ==
[2024-08-17 14:38] VITALS: BP 129/54; PULSE 72; RESP 18; O2SAT 95; BMI 32.9
[2024-08-17] MEDS: BUPIVACAINE 0.25% 10ML INJ 25 MG IJ (15:12)
[2024-08-17] MEDS: DEXAMETHASONE 10MG/ML 1ML VIAL 10 MG (15:12)
[2024-08-17] MEDS: LIDOCAINE 1% 5ML PF VIAL 5 ML (15:12)
[2024-08-17 15:13] VITALS: BP 126/57; PULSE 66; RESP 18; O2SAT 95
[2024-08-17 15:18] VITALS: BP 126/57; PULSE 66; RESP 18; O2SAT 95
--- NOTE | 2024-08-17 15:22 | EXP.PAIN.PRO ---
Procedure Date: 08/17/24 Time: 15:15 Anesthesiologist:: Rodney Hyde CRNA Complications:: None Pre-procedure Diagnosis:: DJD bilateral shoulder. Chronic bilateral shoulder pain. Post-procedure Diagnosis:: Same. Indications for Procedure:: Patient is a very pleasant 68-year-old female who comes our clinic today for bilateral intra-articular shoulder injections. Patient describes bilateral shoulder pain as constant, dull, aching. She has 5/5 strength of the bilateral arms. However, limited range of motion secondary to shoulder pain. She rates her pain 7/10. Procedure Details:: Procedure Details: Left shoulder intra-articular injection Informed consent was obtained risk and benefits of the procedure were explained to the patient. Patient was taken to the procedure room. The Left shoulder was prepped using ChloraPrep. A 25-gauge needle was used posteriorly to inject 10 mL bupivacaine 0.25% and 10 mg of dexamethasone. Patient tolerated procedure well with no complications. Procedure Details: Right shoulder intra-articular injection Informed consent was obtained risk and benefits of the procedure were explained to the patient. Patient was taken to the procedure room. The right shoulder was prepped using ChloraPrep. A 25-gauge needle was used posteriorly to inject 10 mL bupivacaine 0.25% and 10 mg of dexamethasone. Patient tolerated procedure well with no complications. Plan and Disposition:: Patient was discharged without incident.
[2024-08-17 15:28] VITALS: BP 123/65; PULSE 83; RESP 18; O2SAT 100
== END 2024-08-17 15:28 | disposition home or self-care (01) ==
PROVIDERS: PCP Nurse Practitioner Family; Visit Provider Nurse Anesthetist, Certified Registered
DX: M19.012 Primary osteoarthritis, left shoulder (principal); M19.011 Primary osteoarthritis, right shoulder; I25.10 Atherosclerotic heart disease of native coronary artery without angina pectoris; E11.9 Type 2 diabetes mellitus without complications; E78.5 Hyperlipidemia, unspecified; G47.33 Obstructive sleep apnea (adult) (pediatric); Z87.891 Personal history of nicotine dependence; Z88.1 Allergy status to other antibiotic agents; Z79.82 Long term (current) use of aspirin; Z79.84 Long term (current) use of oral hypoglycemic drugs; Z79.899 Other long term (current) drug therapy
CPT/HCPCS: 20610; J0665; J1100; J2003

== ENCOUNTER 2024-09-01 11:42 | Outpatient (POV) | payer MEDICARE, SELFPAY ==
--- OUTSIDE RECORDS SUMMARY | 2015-11-27 20:00 | XMS_ITS | Continuity of Care Document ---
Author Organization [facility] Address [address] [place] [address] Phone Care Team Providers Care Sorter Operator Name Role Phone Radha Rivas MD Unavailable Unavailable Procedures Procedure Date Electrocardiogram report Advance Directives Directive Yes / No Effective Date File Name No Information Encounters Encounter Description Practice Location Reason(s) For Visit Diagnoses Date Provider Providers Copied on Encounter [facility], [address], [place], [place], [id number], [place] tel:[phone] [address] [place] [address] No Information 6 Rob Garcia. [address] [place] [address], [address], [place]. tel:[phone] Family History Family Member Type Diagnosis Age At Onset No Information Payers Payer name Insurance type Covered green party ID Authoriza tikatie(s) [place] CI [id number] Social History Type Description Quantity Date Captured Comments Sex Female Smoking Status No Information Chief Complaint And Reason For Visit No Information Reason For Referral Reason For Referral No Information History Of Present Illness Encounter Date Complaint History Of Prese nt Illness No Information Functional Status Date Functional Assessmen t No Information Instructions Date Instruction Additional Infor mation No Information Assessments Type Assessment Date No Information Patient Care Teams Name Effective Dates (start - stop) Status Members No Information
--- OUTSIDE RECORDS SUMMARY | 2024-09-01 11:46 | XMS_ITS | Data Portability ---
Author Organization [facility] TITO Hunt [place] CLOSED Address [address] [place] [address] Care Team Providers Care Water Regulator And Valve Repairer Name Role Phone SANDRA BILL Referring Provider Assessment No assessment recorded. Plan of Treatment [...] Address Organization Details Recorded Time delivery completed [facility] 08/06/2023 13:04:33 Total Hysterectomy completed [facility] 08/06/2023 13:05:06 Imaging Results None recorded. Procedure Notes None recorded. Medical Equipment None Reported. Allergies Allergen ID Allergen Name Allergen Category Reaction Reaction Severity Criticality Documentation Date Start Date Code Code System Note Provider Name and Address Organization Details Recorded Time 240554 Medicinal product containin g tetracycl ine structure and acting as antibacte rial agent (product) medicatio n Not available Not available Not available 08/06/2023 60976 1004 SNOMED [facility] [place] 12:58:20 Medications Name Sig Start Date Stop [...] Not Available Not Available No t Available [facility] Free Joint [facility] active Not Available Not Available Not Available Vazalore 81 mg capsule Take 1 capsule every day by oral route. active Not Available Not Available No t Available Vitals Date Recorded Body weight Heart rate Oxygen saturation Oxygen saturation in Arterial blood by Pulse oximetry Systolic And Diastolic Provider Name and Address Organization Details Last Updated DateTime 4 94902.9 9 g 68 /min 97 % 97 % 124/84 mm[Hg] [facility] 4 13:07:28 Social History Question Answer Notes LastModified by [employer] [facility] Details LastModified Time Tobacco Smoking Status Former Smoker quit about 26 years [facility] [place] 08/06/2023 13:03:22 What Was The Date Of [...] SNOMED-CT Code Diagnosis ICD10 Code Diagnosis Note [id number] GENNY ENLGE APRN RHEUMATOL OGY [address] [place] [address] 08/06/2023 12:40:21 08/07/2023 04:58:46 Anti-nuclear factor detected 052664505 R76.8 positive ANA1:80neg ative lupus panel Pruritic rash 58822013 L 28.2 comes and goes on the eyelids, elbows, behind kneeson right arm near wristimpro juan but comes and goes Psoriasis of nail 389545 005 L62 appears to be psoriasisc ontinues [...] REPLACEMENT/A DVANTAGE - HMO) Zina Gina Oldread [id number] Radha A Oldread Notes Date Note Type Note Provider [...] have all others are negative GENNY ENGLE, FRUIT HARVESTER [address] [place], [address], [facility] 08/06/2023 13:39:52 OBGyn Episode No OBEpisode recorded.
--- OUTSIDE RECORDS SUMMARY | 2024-09-01 11:46 | XMS_ITS | Clinical Summary ---
Author Organization [facility] Address [address] [place] [address] Care Team Providers Care Corrosion Control Technician Name Role Phone Albania Gaelano Primary Care Provider [phone] Allergies Active Allergy Reactions Criticality Noted Date [...] Health Maintenance Due Date Last Done Comments [facility]-Bone Density Scan 1956 [facility]-Depression Screening 1956 [facility]-Hepatitis C Screening 1956 [facility]-Medicare Annual Wellness (AWV) 1956 [facility]-/Child/Adol SDOH Screenings 1956 [id number] Vaccine (#1) 1961 Diabetes: Dental Exam 1966 [facility]- SDOH Screenings 1974 [facility]-Adult SDOH Screenings 1974 [facility]-DTaP,Tdap,and Td Vaccine s (1 - Tdap) 12/19/1975 [facility]-Pneumococcal Vaccine: 50 + Years (1 of 2 - PCV) 12/19/1975 CT Colonography 2001 Colonoscopy 2001 FIT-DNA 2001 FIT 2001 FOBT 2001 Sigmoidoscopy 2001 [facility]-Colorectal Cancer Screening 2001 [facility]-Breast Cancer Screening 2006 [facility]-Zoster Vaccines (1 of 2) 2006 [facility]-RSV Vaccine: 60+ Years o r (1 - Risk 60-74 years 1-dose series) 2016 [facility]-Diabetes: Hemoglobin A1C 05/30/2024 12/01/2023 [facility]-Influenza Vaccine (#1) 2024 [facility]-Obesity Intervention Completed 024, 08/01/2023, 08/01/2023 [...] % [facility] Kit Lot Number [id number] [facility] [employer] [employer] [facility] Kit Expiration Date 09/2023 [facility] Blood Venous blood specimen / Unknown 12/01/2023 1:29 PM EDT Judit Godinez MD POINT OF CARE TEST ENTER/EDIT ORDERABLES Final Result [facility] [address] [place] [address] from Last 3 Months or Most Recently Relevant to Health Maintenance Insurance [facility] MEDICARE Care Teams Corrosion Control Technician Relationship Specialty Start Date End Date Albania Galeano PA [address] [place] [address] PCP - General 07/03/23
--- OUTSIDE RECORDS SUMMARY | 2024-09-01 11:46 | XMS_ITS | Encounter Summary ---
Author Organization [facility] Address [address] [place] [address] Care Team Providers Care Manager It Training Name Role Phone Albania Galeano Primary Care Provider [phone] Reason for Referral * Consultation (Routine) - Authorized Specialty Diagnoses / Procedures Referred By Etelvina t Referred To Contact Dentist / Pain Medicine Diagnoses Obstructive sleep apnea (adult) (pediatric) Nakia Rascon MD [address] [place] [address] [place] [address] Phone: tel: fax: Aggie Day, DDS [address] [place] [address] Phone: tel: fax: Referral ID Status Reason Start Date Expiration Date V isits Requested Visits Authorized [id number] Authorized 03/27/2023 09/25/2024 1 1 Encounter Details Date Type Department Care Team (Late st Contact Info) Description 03/27/2023 Community [facility] [address] [place] [address] Nakia Rascon MD [address] [place] [address] Obstructive sleep apnea (adult) (pediatric) [...] Primary documented in this encounter Care Teams Manager It Training Relationship Specialty Start Date End Date Albania Galeano PA [address] [place] [address] PCP - General 07/03/23 documented as of this encounter
--- OUTSIDE RECORDS SUMMARY | 2024-09-01 11:46 | XMS_ITS | Patient Health Record ---
Author Organization [facility] Address [address] [place] [address] Care Team Providers Care Field Representative Name Role Phone PCP, Does not have a Primary Care Provider Unava ilable Allergies No Known Allergies Reason For Referral No Information Plan Of Treatment No Information Insurance Providers Payer Name Payer Address Payer Phone Subscriber Number Group Number Insured Name Patient Relationship to Insured Coverage Start Date Coverage End Date Self Pay [address] [facility] [place] [address] null, null Self - patient is the insured 2 [employer] [address] [place] [address] [id number] MARY GRACESHEELA HARTMANTI Self - patient is the insured 2
[2024-09-01 11:53] VITALS: BP 126/70; PULSE 74; RESP 12; O2SAT 95; BMI 32.7
--- NOTE | 2024-09-01 12:00 | EXP.PAIN.SOA ---
[facility] Disclaimer: The information contained in this section may have been updated after the patient was seen, as this information can be updated by other users. Medical History Dysphagia KIESHA (obstructive sleep apnea) Coronary artery disease Back pain Arthritis Hyperlipidemia Diabetes mellitus Surgical History History of wisdom tooth extraction H/O section H/O: hysterectomy Family History Other Cancer Coronary artery disease Diabetes Hyperlipidemia Hypertension Social History Smoking Status: Former smoker alcohol intake: current alcohol intake frequency: 0-2 drinks per day substance use type: denies use current occupational status: other Travel in the last 8 weeks?: None housing: house lives independently: Yes marital status: PM Subjective & Objective Subjective Subjective:: Patient is a pleasant 68-year-old female who presents today for follow-up of her bilateral intra-articular shoulder injections on 08/17/2024. Patient does right at least 90% improvement following those injections and rates that pain a 2 out of 10. Patient states that it is much more manageable and she has been able to do so much more. Patient is however having worsening pain into her low back and hip area. Patient states that that pain is a 7 out of 10 and a constant achy sensation that is worse with increased activity. She states it is worse with prolonged sitting, laying down going up and down stairs. Patient is wanting to try and get scheduled for an injection for this pain. Her Roel has been reviewed and is appropriate. Review of Systems: General: No recent weight changes, no fever, no sleep disturbances Respiratory: No cough, no shortness of air, no recurring pulmonary infections Cardiovascular/peripheral vascular: No chest pain, no palpitations, no edema, no shortness of breath Gastrointestinal: No new onset incontinence, normal bowel movements reported Genitourinary: No new onset incontinence Musculoskeletal: Low back pain, bilateral hip pain Psychiatric: [Normal mood/affect] Neurological: [Denies weakness in extremities], [denies balance issues] Pain at rest (0-10 scale): 7 Objective Objective:: Physical Exam: General: Alert and oriented x3, no acute distress, pleasant and cooperative Lungs: Respirations even and unlabored, symmetrical chest expansion Eyes: PERRL Musculoskeletal: Flexion and extension of lumbar [spine] somewhat guarded secondary to pain, [antalgic gait noted] point tenderness along bilateral SIs with positive bilateral Viviana's, Keri's, Gaenslen's, compression and distraction exam Neurological: Speech clear, no gross sensory deficit Has patient had previous pain injection?: Yes Percent improvement in pain since last injection: 90% Conservative treatment options previously tried: Home exercise plan Length of treatment: Longer than 12 weeks Meds Home Medications and Allergies Home Medications ?Medication ?Instructions ?Recorded ?Confirmed ?Type omeprazole magnesium 20 mg 20 mg PO DAILY GERD 04/30/22 09/01/24 History tablet,delayed release (Prilosec OTC) aspirin 325 mg capsule (Vazalore) 325 mg PO DAILY Blood Thinner 09/19/22 09/01/24 History cholecalciferol (vitamin D3) 50 50 mcg PO DAILY SUPPLIMENT 09/19/22 09/01/24 History mcg (2,000 unit) capsule blood-glucose meter (Accu-Chek #1 ea 03/19/23 09/01/24 Rx Guide Glucose Meter) lancets (Accu-Chek Fastclix Lancet #100 ea 03/19/23 09/01/24 Rx Drum) bisoprolol fumarate 5 mg tablet See Rx Instructions .Route 11/24/23 09/01/24 Rx .COMPLEX #90 tabs clobetasol 0.05 % topical ointment 1 applic topical DIRECTED 04/28/24 09/01/24 History Bacillus coagulans-inulin 1 1 cap PO DAILY 06/14/24 09/01/24 History billion cell-250 mg capsule (Probiotic with Prebiotic) coenzyme Q10 100 mg capsule 200 mg PO DAILY 06/14/24 09/01/24 History (CoQ-10) eszopiclone 1 mg tablet (Lunesta) 1 mg PO HS #30 tabs 07/09/24 09/01/24 Rx baclofen 5 mg tablet See Rx Instructions .Route 08/09/24 09/01/24 Rx .COMPLEX #90 tabs levothyroxine 75 mcg tablet See Rx Instructions .Route 08/16/24 09/01/24 Rx .COMPLEX #30 tabs metformin 500 mg tablet,extended 500 mg PO BID Diabetes #120 tabs 08/16/24 09/01/24 Rx release 24 hr rosuvastatin 10 mg tablet 10 mg PO DAILY Cholesterol #90 tabs 08/16/24 09/01/24 Rx sitagliptin phosphate 100 mg See Rx Instructions .Route 08/16/24 09/01/24 Rx tablet (Januvia) .COMPLEX #30 tabs blood sugar diagnostic (Accu-Chek #50 ea 08/30/24 09/01/24 Rx Guide test strips) New Prescriptions to Start Prescriptions: Allergies Allergy/AdvReac Type Severity Reaction Status Date / Time Tetracyclines Allergy Intermediate Rash Verified 07/09/24 14:04 Assessment and Plan *Assessment and plan (1) Bilateral sacroiliitis: Status: Acute Category: Medical Code(s): M46.1 - Sacroiliitis, not elsewhere classified Plan Patient is experiencing worsening pain along the low back and bilateral hips. They did have limited range of motion of the lumbar spine along with point tenderness along bilateral SI joints and a positive bilateral Viviana's, Keri's, Gaenslen's, compression and distraction exam. I did discuss with the patient that I do believe they would benefit from bilateral SI injections. Risk and benefits were discussed with the patient and they would like to proceed forward with this option. Patient has tried and failed conservative therapy. Patient has been actively doing conservative treatment including oral medication, heat and ice, topicals, at home exercising and stretching for longer than 12 weeks. Patient is having to adjust their activity based off the increased pain resulting in activity modification. I do believe the patient would benefit from SI injection. Patient has had chronic low back pain for longer than 6 months. Patient may be a future candidate of SI fusion if she does get significant relief from these injections. This will be a therapeutic injection with less than 1.5 mL solution to be injected. Patient will be scheduled for bilateral SI injections under fluoroscopy. Patient has been instructed to contact the clinic with any concerns before the next appointment. Dr. Nolan has reviewed this note and agrees with this plan of care. This note was dictated using voice recognition software and make contain errors or omissions. All injections are used with Lidocaine or Bupivacaine and dexamethasone unless diagnostic in which no steroids were injected.
== END 2024-09-01 23:59 | disposition home or self-care (01) ==
LOC: SC.PAIN 11:44
PROVIDERS: PCP Nurse Practitioner Family; Visit Provider Nurse Practitioner Family
DX: M46.1 Sacroiliitis, not elsewhere classified (principal)
CPT/HCPCS: 99212; G0463

== ENCOUNTER 2024-09-13 12:06 | Outpatient (CLI) | payer MEDICARE, SELFPAY ==
--- OUTSIDE RECORDS SUMMARY | 2024-09-13 12:09 | XMS_ITS | Clinical Summary ---
Author Organization [facility] Address [address] [place] [address] Care Team Providers Care Chef & Owner Name Role Phone Albania Galeano Primary Care Provider [phone] Allergies Active Allergy Reactions Criticality Noted Date [...] Health Maintenance Due Date Last Done Comments [facility]-Bone Density Scan 1956 [facility]-Depression Screening 1956 [facility]-Hepatitis C Screening 1956 [facility]-Medicare Annual Wellness (AWV) 1956 [facility]-Infant/Child/Adol SDOH Screenings 1956 [id number] Vaccine (#1) 1961 Diabetes: Dental Exam 1966 [facility]- SDOH Screenings 1974 [facility]-Adult SDOH Screenings 1974 [facility]-DTaP,Tdap,and Td Vaccine s (1 - Tdap) 12/19/1975 [facility]-Pneumococcal Vaccine: 50 + Years (1 of 2 [...] % [facility] Kit Lot Number [id number] [facility] [employer] [facility] Kit Expiration Date 09/2023 [facility] Blood Venous blood specimen / Unknown 12/01/2023 1:29 PM EDT Judit Godinez MD POINT OF CARE TEST ENTER/EDIT ORDERABLES Final Result [facility] [address] [place] [address] from Last 3 Months or Most Recently Relevant to Health Maintenance Insurance [facility] MEDICARE Care Teams Chef & Owner Relationship Specialty Start Date End Date Albania Galeano PA [address] [place] [address] PCP - General 07/03/23
--- OUTSIDE RECORDS SUMMARY | 2024-09-13 12:09 | XMS_ITS | Encounter Summary ---
Author Organization [facility] Address [address] [place] [address] Care Team Providers Care Cause Analyst Name Role Phone Albania Galeano Primary Care Provider Reason for Referral * Consultation (Routine) - Authorized Specialty Diagnoses / Procedures Referred By Etelvina t Referred To Contact Dentist / Pain Medicine Diagnoses Obstructive sleep apnea (adult) (pediatric) Nakia Rascon MD [address] [place] [address] Phone: tel: fax: Aggie Day, DDS [address] [place] [address] Phone: tel: fax: Referral ID Status Reason Start Date Expiration Date V isits Requested Visits Authorized [id number] Authorized 03/27/2023 09/25/2024 1 1 Encounter Details Date Type Department Care Team (Late st Contact Info) Description 03/27/2023 Community [facility] [address] [place] [address] Nakia Rascon MD [address] [place] [address] Obstructive sleep apnea (adult) (pediatric) [...] Primary documented in this encounter Care Teams Cause Analyst Relationship Specialty Start Date End Date Albania Galeano PA [address] [place] [address] PCP - General 07/03/23 documented as of this encounter
[2024-09-13 13:38] LABS: Alanine Aminotransferase 34 U/L (12-78); Albumin Level 4.3 g/dl (3.5-5.0); Albumin/Globulin Ratio 2.3 (1.1-1.8); Alkaline Phosphatase 95 U/L (38-126); Anion Gap 10.4 mEq/L (5-15); Aspartate Amino Transferase 34 U/L (14-36); Bilirubin,Total 0.4 mg/dl (0.2-1.3); Blood Urea Nitrogen 12 mg/dl (7-17); Calcium 10.0 mg/dl (8.4-10.2); Carbon Dioxide 26 mmol/L (22.0-30.0); Chloride 109 mmol/L (98-107); Creatinine,Serum 0.60 mg/dl (0.52-1.04); Estimated Glomerular Filt Rate 100 ml/min (>60); GFR (African American) 121 ML/MIN (>60); Globulin 1.9 g/dL (1.3-3.2); Glucose 120 mg/dl (74-100); Potassium 4.4 mmoL/L (3.5-5.1); Sodium 141 mmol/L (136-145); Total Protein,Serum 6.2 g/dl (6.3-8.2)
[2024-09-14 10:45] LABS: Cholesterol 138 mg/dl (140-200); HDL Cholesterol 54 mg/dl (40-60); Triglycerides 196 mg/dl (30-150)
== END 2024-09-13 23:59 | disposition home or self-care (01) ==
LOC: LAB 12:07
PROVIDERS: Physician Assistant; PCP Nurse Practitioner Family; Visit Provider Nurse Practitioner Family
DX: K75.81 Nonalcoholic steatohepatitis (NASH) (principal); E78.5 Hyperlipidemia, unspecified
CPT/HCPCS: 36415; 80053; 80061

== ENCOUNTER 2024-10-05 10:01 | Day surgery (SDC) | payer MEDICARE, SELFPAY ==
[2024-10-05 10:07] VITALS: BP 128/73; PULSE 69; RESP 18; O2SAT 95; BMI 32.9
[2024-10-05] MEDS: BUPIVACAINE 0.25% 10ML INJ 25 MG IJ (10:16)
[2024-10-05 10:17] VITALS: BP 132/66; PULSE 64; RESP 18; O2SAT 94
[2024-10-05] MEDS: LIDOCAINE 1% 5ML PF VIAL 5 ML (10:17)
[2024-10-05] MEDS: DEXAMETHASONE 10MG/ML 1ML VIAL 10 MG (10:17)
[2024-10-05 10:18] VITALS: BP 132/66; PULSE 64; RESP 18; O2SAT 94
[2024-10-05 10:19] VITALS: BP 144/85; PULSE 65; RESP 16; O2SAT 96
--- NOTE | 2024-10-05 10:19 | P.PCN_ITS ---
Procedure Date: 10/05/24 Time: 10:10 Anesthesiologist:: Irving Hyde CRNA Complications:: None Pre-procedure Diagnosis:: Bilateral sacroiliitis Post-procedure Diagnosis:: Same Indications for Procedure:: Patient is a pleasant 68-year-old female who comes our clinic today for bilatera l sacroiliac joint injection to cortisone local anesthetic. Patient describes low lumbar back pain off the midline bilaterally. Bilateral posterior hip pain. Difficulty transitioning from sitting to standing. Upon examination she has extreme point tenderness over the bilateral sacroiliac joints. She rates her pain 7/10. Procedure Details:: Procedure: Bilateral sacroiliac joint injections under fluoroscopy Informed consent was obtained and the risks and benefits of the procedure were explained to the patient.~ The patient was taken to the procedure room and noninvasive monitors were placed including a noninvasive blood pressure cuff and pulse oximeter.~ The patient was placed prone on the procedure table. Both hips were cleansed using Betadine as a cleansing solution. C-arm fluoroscopy was used to view the right sacroiliac joint.~ The skin and subcutaneous tissues were anesthetized using lidocaine 1.5% and a 25-gauge needle.~ After this, a 22-gauge spinal needle was inserted under fluoroscopic guidance into the inferior aspect of the right sacroiliac joint.~ Omnipaque dye was injected and good spread was seen throughout the joint.~ After this, approximately 5 mL of bupivacaine, 0.25% and dexamethasone 5 mg was incrementally injected into the right sacroiliac joint. We then moved to the left sacroiliac joint.~ The skin and subcutaneous tissues were anesthetized using lidocaine 1.5% and a 25-gauge needle.~ After this, a 22- gauge spinal needle was inserted under fluoroscopic guidance into the inferior aspect of the left sacroiliac joint.~ Omnipaque dye was injected and good spread was seen throughout the joint. After this, approximately 5 mL of bupivacaine, 0.25% and dexamethasone 5 mg was incrementally injected into the left sacroiliac joint.~ The patient tolerated the procedure well with no complications. The patient was observed in the Pain Clinic and then was discharged home neurologically intact. Plan and Disposition:: Patient was discharged without incident.
== END 2024-10-05 10:19 | disposition home or self-care (01) ==
PROVIDERS: PCP Nurse Practitioner Family; Visit Provider Nurse Anesthetist, Certified Registered
DX: M46.1 Sacroiliitis, not elsewhere classified (principal); I25.10 Atherosclerotic heart disease of native coronary artery without angina pectoris; E11.9 Type 2 diabetes mellitus without complications; E78.5 Hyperlipidemia, unspecified; M19.90 Unspecified osteoarthritis, unspecified site; Z87.891 Personal history of nicotine dependence; Z79.84 Long term (current) use of oral hypoglycemic drugs; Z79.82 Long term (current) use of aspirin; Z79.899 Other long term (current) drug therapy
CPT/HCPCS: 64450; J0665; J1100; J2003

== ENCOUNTER 2024-10-12 11:50 | Outpatient (CLI) | payer MEDICARE, SELFPAY ==
[2024-10-12 16:06] LABS: Albumin Level 4.3 g/dl (3.5-5.0); Chloride 106 mmol/L (98-107); Sodium 138 mmol/L (136-145)
[2024-10-12 16:07] LABS: Potassium 4.3 mmoL/L (3.5-5.1)
[2024-10-12 16:09] LABS: Alanine Aminotransferase 48 U/L (12-78); Albumin/Globulin Ratio 2.0 (1.1-1.8); Alkaline Phosphatase 84 U/L (38-126); Anion Gap 10.3 mEq/L (5-15); Aspartate Amino Transferase 38 U/L (14-36); Bilirubin,Total 0.7 mg/dl (0.2-1.3); Blood Urea Nitrogen 14 mg/dl (7-17); Carbon Dioxide 26 mmol/L (22.0-30.0); Cholesterol 139 mg/dl (140-200); Creatinine,Serum 0.60 mg/dl (0.52-1.04); Estimated Glomerular Filt Rate 100 ml/min (>60); GFR (African American) 121 ML/MIN (>60); Globulin 2.2 g/dL (1.3-3.2); Total Protein,Serum 6.5 g/dl (6.3-8.2); Triglycerides 214 mg/dl (30-150)
[2024-10-12 16:10] LABS: Calcium 9.4 mg/dl (8.4-10.2); Glucose 132 mg/dl (74-100); HDL Cholesterol 49 mg/dl (40-60)
[2024-10-12 16:32] LABS: Hemoglobin A1C 5.7 % (4.0-6.0)
[2024-10-12 16:40] LABS: Thyroid Stimulating Hormone 0.13 uIU/mL (0.465-4.68)
--- OUTSIDE RECORDS SUMMARY | 2024-10-13 12:08 | XMS_ITS | Clinical Summary ---
Author Organization [facility] Address [address] [place] [address] Care Team Providers Care Flash Welder Name Role Phone Albania Galeano Primary Care Provider [phone] Allergies Active Allergy Reactions Criticality Noted Date [...] Health Maintenance Due Date Last Done Comments [facility]-Bone Density Scan 1956 [facility]-Depression Screening 1956 [facility]-Hepatitis C Screening 1956 [facility]-Medicare Annual Wellness (AWV) 1956 [facility]-Infant/Child/Adol SDOH Screenings 1956 [id number] Vaccine (#1) 1961 Diabetes: Dental Exam 1966 [facility]- SDOH Screenings 1974 [facility]-Adult SDOH Screenings 1974 [facility]-DTaP,Tdap,and Td Vaccine s (1 - Tdap) 12/19/1975 [facility]-Pneumococcal Vaccine: 50 + Years (1 of [...] % [facility] Kit Lot Number [id number] [facility] Kit Expiration Date 09/2023 [facility] [facility] Blood Venous blood specimen / Unknown 12/01/2023 1:29 PM EDT Judit Godinez MD POINT OF CARE TEST ENTER/EDIT ORDERABLES Final Result [facility] [address] [place] [address] from Last 3 Months or Most Recently Relevant to Health Maintenance Insurance [facility] MEDICARE Care Teams Flash Welder Relationship Specialty Start Date End Date Albania Galeano PA [address] [place] [address] PCP - General 07/03/23
--- OUTSIDE RECORDS SUMMARY | 2024-10-13 12:08 | XMS_ITS | Encounter Summary ---
Author Organization [facility] Address [address] [place] [address] Care Team Providers Care Special Education Math Teacher Name Role Phone Albania Galeano Primary Care Provider Encounter Details Date Type Department Care Team (Late st Contact Info) Description 03/27/2023 Community [facility] [address] [place] [address] Nakia Rascon MD [address] [place] [address] Obstructive sleep apnea (adult) (pediatric) (Primary Dx) Social History Tobacco Use Types Packs/Day Years Used Date Smoking Tobacco: Never Assessed Comments Unknown Sex and Gender Information Value Date Recorded Sex Assigned at Not on file Legal Sex Female 10:55 AM EDT Gender Identity Not on file Sexual Orientation Not on file documented as of this encounter Plan of Treatment Not on file documented as of this encounter Visit Diagnoses Diagnosis Obstructive sleep apnea (adult) (pediatric)- Primary documented in this encounter Care Teams Special Education Math Teacher Relationship Specialty Start Date End Date Albania Galeano PA [address] [place] [address] PCP - General 07/03/23 documented as of this encounter
[2024-10-14 13:13] LABS: Triiodothyronine (T3) Free 3.3 pg/mL (2.0-4.4)
== END 2024-10-12 23:59 | disposition home or self-care (01) ==
LOC: LAB.DROPOF 10-13 11:50
PROVIDERS: PCP Nurse Practitioner Family; Visit Provider Nurse Practitioner Family
DX: E78.5 Hyperlipidemia, unspecified (principal); K76.0 Fatty (change of) liver, not elsewhere classified; E11.9 Type 2 diabetes mellitus without complications; E03.9 Hypothyroidism, unspecified
CPT/HCPCS: 80053; 80061; 82043; 82570; 83036; 84443; 84481

== ENCOUNTER 2024-12-23 07:24 | Day surgery (SDC) | payer MEDICARE, SELFPAY ==
--- NOTE | 2024-12-21 07:19 | EXP.HP ---
History of Present Illness *Admission Date: 12/23/24 *History of present illness: Mrs. Champange is a 69-year-old female who is here for screening colonoscopy. The patient's last colonoscopy was in [place] in 2000. She reports no abdominal pain, weight loss, change in her bowel habits or rectal bleeding. She does think that her maternal grandmother might have had rectal cancer. The examination is deemed medically necessary for screening colonoscopy. The patient does have a history of elevated liver enzymes with prior history of alcohol use disorder. The patient has been seen, interviewed and examined prior to the procedure by both myself and the anesthesia provider. [facility] Disclaimer: The information contained in this section may have been updated after the patient was seen, as this information can be updated by other users. Medical History (Updated 12/22/24 @ 15:16 by Eddi Partida RN) History of insertion of dental endosseous implant Dysphagia KIESHA (obstructive sleep apnea) Coronary artery disease Back pain Arthritis Hyperlipidemia Diabetes mellitus Surgical History History of wisdom tooth extraction H/O section H/O: hysterectomy Family History Other Cancer Coronary artery disease Diabetes Hyperlipidemia Hypertension Social History (Updated 12/22/24 @ 15:17 by Eddi Partida RN) Smoking Status: Former smoker alcohol intake: never substance use type: denies use current occupational status: retired and other Travel in the last 8 weeks?: None housing: house lives independently: Yes marital status: Have you lived/traveled outside US in past 30 days?: No Contact w/someone who lives/traveled outside US past 30 days?: No Exposure to someone with infectious disease in past 14 days?: No Do you have a fever (greater than 100.4 F or 38 C)?: No Have you tested positive for COVID-19?: No Exposed to someone with COVID-19 in past 14 days?: No Do you have a sore throat?: No Do you have a cough?: No Do you have any weakness?: No Do you have any diarrhea?: No Are you experiencing any unusual bleeding?: No Do you have any muscle aches/pain?: No Do you have any abdominal pain?: No Are you experiencing loss of taste or smell?: No Other Medical History Have you received the Flu Vaccine for this season: No Have you received the Pneumonia Vaccine: No Review of Systems Review of Systems Review of systems (narrative): Negative *Cardiovascular Comments: Negative *Gastrointestinal Comments: Negative *Genitourinary Comments: Negative *Musculoskeletal Comments: Negative *Neurologic Comments: Negative Meds Home Medications and Allergies Home Medications ?Medication ?Instructions ?Recorded ?Confirmed ?Type omeprazole magnesium 20 mg 20 mg PO DAILY GERD 04/30/22 12/23/24 History tablet,delayed release (Prilosec OTC) aspirin 325 mg capsule (Vazalore) 325 mg PO DAILY Blood Thinner 09/19/22 12/23/24 History cholecalciferol (vitamin D3) 50 50 mcg PO DAILY SUPPLIMENT 09/19/22 12/23/24 History mcg (2,000 unit) capsule blood-glucose meter (Accu-Chek #1 ea 03/19/23 12/23/24 Rx Guide Glucose Meter) lancets (Accu-Chek Fastclix Lancet #100 ea 03/19/23 12/23/24 Rx Drum) clobetasol 0.05 % topical ointment 1 applic topical DIRECTED 04/28/24 12/23/24 History Bacillus coagulans-inulin 1 1 cap PO DAILY 06/14/24 12/23/24 History billion cell-250 mg capsule (Probiotic with Prebiotic) coenzyme Q10 100 mg capsule 200 mg PO DAILY 06/14/24 12/23/24 History (CoQ-10) metformin 500 mg tablet,extended 500 mg PO BID Diabetes #120 tabs 08/16/24 12/23/24 Rx release 24 hr rosuvastatin 10 mg tablet 10 mg PO DAILY Cholesterol #90 tabs 08/16/24 12/23/24 Rx betamethasone dipropionate 0.05 % 1 applic topical BID 09/13/24 12/23/24 History topical ointment blood sugar diagnostic (Accu-Chek #100 ea 09/21/24 12/23/24 Rx Guide test strips) bisoprolol fumarate 5 mg tablet See Rx Instructions .Route 11/17/24 12/23/24 Rx .COMPLEX #90 tabs levothyroxine 75 mcg tablet See Rx Instructions .Route 12/07/24 12/23/24 Rx .COMPLEX #30 tabs sitagliptin phosphate 100 mg See Rx Instructions .Route 12/07/24 12/23/24 Rx tablet (Januvia) .COMPLEX #30 tabs baclofen 10 mg tablet 10 mg PO QID #120 tabs 12/09/24 12/23/24 Rx sodium,potassium,mag sulfates 17.5 See Rx Instructions PO .COMPLEX 12/09/24 12/09/24 Rx gram-3.13 gram-1.6 gram oral soln #354 mL (Suprep Bowel Prep Kit) New Prescriptions to Start Prescriptions: Allergies Allergy/AdvReac Type Severity Reaction Status Date / Time Tetracyclines Allergy Intermediate Rash Verified 12/09/24 14:59 Exam *Routine HEENT Exam Head: Present normocephalic Eye: Present EOMI and PERRL ENT: Present mucous membranes moist *Routine Neck Exam Neck: Present supple *Routine Respiratory Exam Respiratory: Present CTA bilaterally *Routine Cardiovascular Exam Cardiovascular: Present RRR *Routine Abdominal Exam Abdominal: Present soft and normoactive bowel sounds; Absent tenderness *Routine Rectal Exam Rectal:: deferred *Routine Genitalia Exam Genitalia:: deferred *Routine Extremities Exam Extremities: Absent cyanosis, clubbing or edema *Routine Skin Exam Skin: Present warm; Absent rash *Routine Neurological Exam Neurological: Present alert and oriented X3 Assessment and Plan *Assessment and plan (1) Screening for malignant neoplasm of colon: Status: Acute Category: Medical Code(s): Z12.11 - Encounter for screening for malignant neoplasm of colon Plan A/P: 1. Screening for colon cancer is the preprocedural diagnosis. The patient will be anesthetized/sedated using MAC sedation. The patient has been seen and examined. Cardiac and lung assessment prior to the examination is stable. Proceed with planned screening colonoscopy.
[2024-12-22 15:20] VITALS: BMI 32.9
--- NOTE | 2024-12-23 06:51 | P.PCN_ITS ---
[facility] Procedure Note Date: 12/23/24 Time: 08:56 Procedure Note:: Colonoscopy Procedure Report: Colonoscopy with cold snare polypectomy Endoscopist: Bony Cano II, MD Referring physician: December 23, 2024 Date of Procedure: December 23, 2024 Equipment: Olympus [id number] adult colonoscope Sedation: MAC sedation Indication: Mrs. Champagne is a 69-year-old female who is here for screening colonoscopy. The patient's last colonoscopy was in [facility] in 2020 and was reportedly normal. She reports no abdominal pain, weight loss, change in her bowel habits or rectal bleeding. She does think that possibly her maternal grandmother might have had rectal cancer. The examination is deemed medically necessary for screening colonoscopy. The patient does have a history of elevated liver enzymes with prior history of alcohol use disorder. Procedure: Prior to the procedure, a history and physical exam was performed, and patient's medications and allergies were reviewed. The risks, benefits and alternatives of the sedation and procedure were discussed with the patient. All questions were answered and informed consent was obtained. The patient was brought to the procedure room. Patient identification and proposed procedure were verified by the physician and the nurse. The patient was placed in a left lateral decubitus position and the scope was passed under direct vision. Throughout the procedure, the patient's blood pressure, pulse, and oxygen saturations were monitored continuously. The colonoscopy was accomplished without difficulty. The patient tolerated the procedure well. Findings: On digital rectal examination there was normal rectal tone. There were no external hemorrhoids. The colonoscope was introduced through the anal canal to the rectum and advanced to the cecum. The ileocecal valve and appendiceal orifice were identified. The scope was advanced a short distance into the ileum which appeared grossly normal. The scope was then withdrawn into the colon. The cecum, ascending and transverse colon and mucosa were grossly normal. There were scattered diverticuli throughout the descending and sigmoid colon (LEFT colon). There were 2 diminutive polyps (rectosigmoid x 1 (4 mm) and rectum x 1 (3 mm)). Both of these were removed via cold snare polypectomy. Upon retroflexion within the rectum there were grade 1-2 internal hemorrhoids. The preparation was excellent throughout with [place] Preparation Score of 9. The cecal time was 12 minutes. Impression: 1. Diminutive colonic polyps x 2 (3 and 4 mm) 2. Left-sided diverticulosis 3. Grade 1-2 internal hemorrhoids Plan: I will follow-up the polyp histology and recommend repeat screening/surveillance colonoscopy again in 7 to 10 years based upon the pathology. I would encourage psyllium bulking fiber supplementation on a maintenance basis.
[2024-12-23 07:42] VITALS: BP 141/103; PULSE 69; RESP 18; TEMP 36.4; O2SAT 96
[2024-12-23] MEDS: LACTATED RINGERS 1000ML 1,000 ML 50 ML IV (07:51)
--- NOTE | 2024-12-23 08:05 | EXP.ANES.CKL ---
[facility] Disclaimer: The information contained in this section may have been updated after the patient was seen, as this information can be updated by other users. Medical History (Updated 12/22/24 @ 15:16 by Eddi Partida RN) History of insertion of dental endosseous implant Dysphagia KIESHA (obstructive sleep apnea) Coronary artery disease Back pain Arthritis Hyperlipidemia Diabetes mellitus Surgical History History of wisdom tooth extraction H/O section H/O: hysterectomy Family History Other Cancer Coronary artery disease Diabetes Hyperlipidemia Hypertension Social History (Updated 12/22/24 @ 15:17 by Eddi Partida RN) Smoking Status: Former smoker alcohol intake: never substance use type: denies use current occupational status: retired and other Travel in the last 8 weeks?: None housing: house lives independently: Yes marital status: Have you lived/traveled outside US in past 30 days?: No Contact w/someone who lives/traveled outside US past 30 days?: No Exposure to someone with infectious disease in past 14 days?: No Do you have a fever (greater than 100.4 F or 38 C)?: No Have you tested positive for COVID-19?: No Exposed to someone with COVID-19 in past 14 days?: No Do you have a sore throat?: No Do you have a cough?: No Do you have any weakness?: No Do you have any diarrhea?: No Are you experiencing any unusual bleeding?: No Do you have any muscle aches/pain?: No Do you have any abdominal pain?: No Are you experiencing loss of taste or smell?: No [facility] Anesthesia Checklist Patient Identification Patient Identification: Arm Band Structural Data Admitted From: Home Planned Operative Procedure/s: Colonoscopy Consent for Planned Operative Procedure(s) Verified: Yes Verified Documents: Surgical Consent and History and Physical NPO Status Verified Time NPO: 00:00 Additional verifications Anesthesia Reactions: No Airway Assessment Mallampati Score:: Class II C-Spine Mobility Assessed: Yes TMJ Mobility Assessed: Yes Dentition: Good Dentition Neurological Assessment Level of Consciousness: Awake, Alert and Appropriate Anesthesia Plan Anesthesia Risk discussed: Yes Anesthesia Plan: Verified ASA Class: II Anesthesia Type: MAC
[2024-12-23 08:06] LABS: POC Glucose,Bedside 108 gm/dL (70-110)
[2024-12-23 08:58] VITALS: BP 86/59; PULSE 63; RESP 18; TEMP 36.1; O2SAT 94
[2024-12-23 09:08] VITALS: BP 100/58; PULSE 60; RESP 18; O2SAT 93
[2024-12-23 09:18] VITALS: BP 110/51; PULSE 66; RESP 18; O2SAT 96
[2024-12-23 09:23] VITALS: BP 125/60; PULSE 58; RESP 16; O2SAT 96
== END 2024-12-23 09:26 | disposition home or self-care (01) ==
PROVIDERS: PCP Nurse Practitioner Family; Visit Provider Internal Medicine Gastroenterology
PROC: 0DJD8ZZ Inspection of Lower Intestinal Tract, Via Natural or Artificial Opening Endoscopic (ICD-10-PCS; CPT 45378; principal; 2024-12-23 08:00)
DX: Z12.11 Encounter for screening for malignant neoplasm of colon (principal); K63.5 Polyp of colon; K57.30 Diverticulosis of large intestine without perforation or abscess without bleeding; K64.0 First degree hemorrhoids; K64.1 Second degree hemorrhoids; M19.90 Unspecified osteoarthritis, unspecified site; E11.9 Type 2 diabetes mellitus without complications; I25.10 Atherosclerotic heart disease of native coronary artery without angina pectoris; Z87.891 Personal history of nicotine dependence; Z79.82 Long term (current) use of aspirin; Z88.1 Allergy status to other antibiotic agents
CPT/HCPCS: 45385; 82962; 88305; J2003; J2704; J7120

== ENCOUNTER 2024-12-28 10:38 | Emergency (ER) | payer MEDICARE, SELFPAY ==
--- NOTE | 2024-12-28 10:45 | ED_ITS ---
<Statement entered by Rosemarie Corona MD - 12/28/24 14:55> I was consulted by the GUILLERMO, and we discussed the complexity of the problems being addressed. I approved the treatment and management plan for this patient's care in the emergency department, thus performing a substantive portion of the medical decision making. Rosemarie Corona MD, NIURKA, FACEP Discharge Plan Disposition Patient Disposition: Home, Self-Care Condition: Good Prescriptions Prescriptions: No Action omeprazole magnesium [Prilosec OTC] 20 mg tablet,delayed release (DR/EC) 20 mg PO DAILY Vazalore 325 mg capsule 325 mg PO DAILY cholecalciferol (vitamin D3) 50 mcg (2,000 unit) capsule 50 mcg PO DAILY clobetasol 0.05 % ointment 1 applic topical DIRECTED Patient Comments: APPLY TOPICALLY TWICE DAILY TO THE THICKEST AREA OF ECZEMA FOR 3 WEEKS THEN TAKE A 1 WEEK BREAK BEFORE RESUMING (AVOID USE ON FACE,ARMPITS,GROIN.) betamethasone dipropionate 0.05 % ointment 1 applic topical BID Patient Comments: APPLY A THIN LAYER TWICE A DAY TO THE AFFECTED AREAS FOR 3 WEEKS ON THEN 1 WEEK OFF, REPEAT NEEDED baclofen 10 mg tablet 10 mg PO QID Qty: 120 2RF coenzyme Q10 [CoQ-10] 100 mg capsule 200 mg PO DAILY Probiotic with Prebiotic 1 billion-250 cell-mg capsule 1 cap PO DAILY (DME) blood-glucose meter [Accu-Chek Guide Glucose Meter] Misc See Rx Instructions .Route Qty: 1 0RF Rx Instructions: TID PRN (DME) lancets [Accu-Chek Fastclix Lancet Drum] Misc See Rx Instructions .Route Qty: 100 0RF Rx Instructions: TID PRN metformin 500 mg tablet extended release 24 hr 500 mg PO BID Qty: 120 3RF rosuvastatin 10 mg tablet 10 mg PO DAILY Qty: 90 4RF (DME) Accu-Chek Guide test strips Strip See Rx Instructions .ROUTE .COMPLEX Qty: 100 3RF Dose Instruction: USE STRIP THREE TIMES DAILY NEEDED FOR DIABETES Rx Instructions: USE STRIP THREE TIMES DAILY NEEDED FOR DIABETES bisoprolol fumarate 5 mg tablet See Rx Instructions .ROUTE .COMPLEX Qty: 90 3RF Dose Instruction: Take 1 tablet by mouth once daily for blood pressure Rx Instructions: Take 1 tablet by mouth once daily for blood pressure levothyroxine 75 mcg tablet See Rx Instructions .ROUTE .COMPLEX Qty: 30 0RF Dose Instruction: Take 1 tablet by mouth once daily Rx Instructions: Take 1 tablet by mouth once daily Januvia 100 mg tablet See Rx Instructions .ROUTE .COMPLEX Qty: 30 0RF Dose Instruction: Take 1 tablet by mouth once daily Rx Instructions: Take 1 tablet by mouth once daily sodium,potassium,mag sulfates [Suprep Bowel Prep Kit] 17.5-3.13-1.6 gram recon soln See Rx Instructions PO .COMPLEX Qty: 354 0RF Rx Instructions: DILUTE; drink full amount early evening before AND next morning at least 4-5 hr before procedure; follow w 960 mL water PO Referrals Follow up/Referrals: Yolanda Saamniego APRN [Primary Care Provider, Medical] - See instructions Will Ramos DO [Staff Physician, Orthopedics] - See instructions Activity Restrictions/Add. Instructions Additional Instructions/Restrictions: Please follow-up with your family physician and orthopedic doctor in the upcoming days/weeks. Please utilize your sling as needed for symptomatic relief. I recommend ibuprofen Tylenol, ice, rest, please return to the emergency with any worsening signs or symptoms. Clinical Impressions Clinical Impression: Pain in right shoulder Instructions Patient Instructions: DI for Shoulder Pain Print Language Print Language: Turkmen Discharge ED Provider: Rosemarie Corona General Adult HPI General Chief complaint: PAIN Stated complaint: AO 12/27, inj right arm, tingling in pinky Time Seen by Provider: 12/28/24 10:41 Mode of Arrival: Ambulatory Source of Information: Patient Limitations: No Limitations History of Present Illness HPI narrative: 69-year-old female presents to the emergency department with right arm/shoulder injury after a fall yesterday, patient states that she was attempting to carry a bucket out to her chicken coop , when she tripped and fell, landing on her right shoulder/arm, she has limited range of motion, and pain, denies any other upper or lower extremity injury, denies striking the head, denies any LOC, denies any presyncopal or syncopal event denies any lightheadedness or dizziness, patient is not on any anticoagulant therapy, is on antiplatelet therapy with aspirin, denies any numbness tingling denies any neck pain back pain, denies any saddle anesthesia, denies any urinary bladder or bowel dysfunction, denies fever chills chest pain shortness of breath, abdominal pain nausea vomiting constipation diarrhea no urinary symptomatology. Patient is a non-smoker, occasional utilize alcohol, denies any other drug use. Other past medical history consistent with LEWIS, CAD, T2DM, hyperlipidemia, KIESHA, osteoarthritis. Initial triage vitals unremarkable. Patient has been utilizing baclofen ibuprofen and Tylenol with some relief to her symptomatology, last dose was last night. Please note that above description of symptoms, in this electronic medical record under categorization of recalled from ER triage doctor by RN are reflective of an initial nursing assessment, however, is not reflective of my full history and physical exam that was personally taken and clarified. Consequentially, this preceding description of symptoms, which may include the patient's categorized chief complaint in the EMR, do not reflect my personal clinical impression, and the ultimate description of history of present illness and patient stated complaints should be deferred to this section of the note. Unless stated otherwise or congruent with this section of the note, additional signs, symptoms, or incongruence should be interpreted as inaccurate with my clinical impression. Onset (ago): hour(s) Related Data Home Medications ?Medication ?Instructions ?Recorded ?Confirmed omeprazole magnesium 20 mg 20 mg PO DAILY GERD 3 12/23/24 tablet,delayed release (Prilosec OTC) aspirin 325 mg capsule (Vazalore) 325 mg PO DAILY Bloo d Thinner 09/19/22 12/23/24 cholecalciferol (vitamin D3) 50 50 mcg PO DAILY SUPPLI MENT 09/19/22 12/23/24 mcg (2,000 unit) capsule clobetasol 0.05 % topical ointment 1 applic topical DIRECTED 04/28/24 12/23/24 Bacillus coagulans-inulin 1 1 cap PO DAILY 06/14/24 billion cell-250 mg capsule (Probiotic with Prebiotic) coenzyme Q10 100 mg capsule 200 mg PO DAILY 06/14/24 1 02/23/24 (CoQ-10) betamethasone dipropionate 0.05 % 1 applic topical BID 09/13/24 12/23/24 topical ointment Previous Rx's ?Medication ?Instructions ?Recorded blood-glucose meter (Accu-Chek #1 ea 03/19/23 Guide Glucose Meter) lancets (Accu-Chek Fastclix Lancet #100 ea 03/19/23 Drum) metformin 500 mg tablet,extended 500 mg PO BID Diabete s #120 tabs 08/16/24 release 24 hr rosuvastatin 10 mg tablet 10 mg PO DAILY Cholesterol # 90 tabs 08/16/24 blood sugar diagnostic (Accu-Chek #100 ea 09/21/24 Guide test strips) bisoprolol fumarate 5 mg tablet See Rx Instructions .R oute 11/17/24 .COMPLEX #90 tabs levothyroxine 75 mcg tablet See Rx Instructions .Route 12/07/24 .COMPLEX #30 tabs sitagliptin phosphate 100 mg See Rx Instructions .Rout e 12/07/24 tablet (Januvia) .COMPLEX #30 tabs baclofen 10 mg tablet 10 mg PO QID #120 tabs 12/09 sodium,potassium,mag sulfates 17.5 See Rx Instructions PO .COMPLEX 12/09/24 gram-3.13 gram-1.6 gram oral soln #354 mL (Suprep Bowel Prep Kit) Allergies Allergy/AdvReac Type Severity Reaction Status Date / Time Tetracyclines Allergy Intermediate Rash Verified 12/09/24 14:59 [facility] Disclaimer: The information contained in this section may have been updated after the patient was seen, as this information can be updated by other users. Medical History (Updated 12/28/24 @ 12:32 by DONNELL Kiran) History of insertion of dental endosseous implant Dysphagia KIESHA (obstructive sleep apnea) Coronary artery disease Back pain Arthritis Hyperlipidemia Diabetes mellitus Surgical History History of wisdom tooth extraction H/O section H/O: hysterectomy Family History Other Cancer Coronary artery disease Diabetes Hyperlipidemia Hypertension Social History (Updated 12/22/24 @ 15:17 by Eddi Partida RN) Smoking Status: Never smoker alcohol intake: never substance use type: denies use current occupational status: retired and other Travel in the last 8 weeks?: None housing: house lives independently: Yes marital status: Have you lived/traveled outside US in past 30 days?: No Contact w/someone who lives/traveled outside US past 30 days?: No Exposure to someone with infectious disease in past 14 days?: No Do you have a fever (greater than 100.4 F or 38 C)?: No Have you tested positive for COVID-19?: No Exposed to someone with COVID-19 in past 14 days?: No Do you have a sore throat?: No Do you have a cough?: No Do you have any weakness?: No Do you have any diarrhea?: No Are you experiencing any unusual bleeding?: No Do you have any muscle aches/pain?: No Do you have any abdominal pain?: No Are you experiencing loss of taste or smell?: No Other Medical History Have you received the Flu Vaccine for this season: No Have you received the Pneumonia Vaccine: No ROS Obtained: Yes All systems reviewed & no additional complaints except as documented Physical Exam General General appearance: alert and in no apparent distress Head Head exam: atraumatic and normocephalic Eye Eye exam: Present PERRL and EOMI ENT ENT exam: Present mucous membranes moist Neck Neck exam: Present normal inspection Chest Chest inspection: Present normal inspection and symmetric chest wall rise Respiratory Respiratory exam: Present normal lung sounds bilaterally; Absent respiratory distress Cardiovascular Cardiovascular exam: Present regular rate and normal rhythm Abdominal Exam Abdominal exam: Present soft; Absent tenderness, guarding, rebound or rigidity Extremities Exam Extremities exam: Present normal inspection, tenderness and other (No obvious edema or joint swelling, no obvious squared off shoulder, no obvious open fracture or acute traumatic dislocation, patient has decreased range of motion difficulty with abduction abduction flexion and extension, otherwise neurovascular tact pain to palpation over the humeral head/shoulder); Absent full ROM Back Exam Back exam: Present normal inspection and full ROM Neurological Exam Neurological exam: Present alert and oriented X3 Psychiatric Psychiatric exam: Present normal affect Skin Skin exam: Present warm and dry Medical Decision Making Medical Records Medical records reviewed: Yes I reviewed the patient's medical records. Screening: Per USPSTF and CDC recommendations, given the prevalence of disease in our region, it is our hospital?s policy to screen for HIV and viral Hepatitis for all patients aged 18 and over and those with ongoing risk factors. Roel Inquiry Pt receiving controlled substance: Yes Roel was queried for this patient: No Reason not queried -: Emergent pt cond-no time Risks and benefits of using a controlled substance: were discussed with pt by me Vital Signs: 12/28/24 10:47 Temperature 97.9 F Temperature Source Oral Pulse Rate [Right] 69 Respiratory Rate 16 Blood Pressure [Right Arm] 153/92 H Blood Pressure Mean [Right Arm] 112 Blood Pressure Source [Right Arm] Automatic Cuff Blood Pressure Position [Right Arm] Sitting 02 Sat by Pulse Oximetry 96 Oxygen Delivery Method Room Air Orders (Tests/Meds): ED MEDICATIONS Discontinued Medications Generic Name Dose Route Start Last Admin Trade Name [place] PRN Reason Stop Dose Admin Hydrocodone Bitart/Acetaminophen 1 tab 12/28/24 10:53 12/28/24 11:07 Hydrocodone/Apap 5/325 Mg Tablet PO 12/28/24 10:54 1 tab ONCE ONE Administration ORDERS Category Date Time Status CT head/brain wo con Stat Cat Scan 12/28/24 10:56 Completed XR humerus RT Stat Exams 12/28/24 10:52 Completed XR shoulder RT min 2V Stat Exams 12/28/24 10:52 Completed Medical Decision Narrative: 69-year-old female presents to the emergency department with a fall and right shoulder/arm injury that occurred last night patient has limited range of motion/difficulty moving her right arm/shoulder, differential diagnose include but not limited to, anterior shoulder dislocation, humeral head fracture, acute shoulder impingement syndrome, shoulder ligamentous injury, shoulder sprain/strain, sprain/strain, AC joint dysfunction, soft tissue injury, among others. I discussed this patient's case with the attending physician Dr. Corona Will obtain x-ray of the humerus on the right x-ray of the shoulder and the right, will also obtain CT head without contrast for further evaluation as characterization will give 5 mg p.o. Prim for pain. I reviewed the patient's right humerus x-ray and right shoulder x-ray along with corresponding radiologic reports, no acute process, slight progression of osteoarthritis in the AC joint. I reviewed the patient's CT head without contrast on the corresponding radiologic report, atrophy and chronic changes without acute process. I discussed the results with the patient at the bedside recommend sling ibuprofen and ice Tylenol for symptomatic relief. Patient will follow-up with PCP and orthopedic physician in the upcoming days/weeks. Patient voiced understanding and agreement with the current treatment plan/discharge plan. Strict ED return precaution given. Critical Care Critical Care Time Critical Care Time: No
[2024-12-28 10:47] VITALS: BP 153/92; PULSE 69; RESP 16; TEMP 36.6; O2SAT 96; BMI 32.9
--- NOTE | 2024-12-28 10:52 | XR_ITS ---
FINAL REPORT CLINICAL HISTORY: Fall right arm/shoulder pain COMPARISON: 04/24/2023 FINDINGS: RIGHT SHOULDER Three views demonstrate no acute fracture or dislocation. There are mild hypertrophic changes at the acromioclavicular joint, slightly progressed from prior. The soft tissues are unremarkable. IMPRESSION: No acute process. Slight progression osteoarthritis at the AC joint. Reviewed, Interpreted and Dictated by Ralf Avalos MD Transcribed by Lamar Cosme Authenticated and [facility]
--- NOTE | 2024-12-28 10:52 | XR_ITS ---
FINAL REPORT CLINICAL HISTORY: Fall right arm/shoulder pain COMPARISON: None FINDINGS: Two views of the right humerus were obtained. There is no acute fracture or dislocation. There are mild hypertrophic changes at the AC joint. There is no acute soft tissue abnormality. IMPRESSION: No acute abnormality identified. Reviewed, Interpreted and Dictated by Ralf Avalos MD Transcribed by Lamar Cosme Authenticated and [facility]
--- NOTE | 2024-12-28 10:56 | CT_ITS ---
FINAL REPORT TECHNIQUE: multiple axial CT images were performed from the foramen magnum to the vertex without enhancement. CLINICAL HISTORY: fall COMPARISON: None FINDINGS: The ventricles are enlarged. There is mild diffuse atrophy. There is periventricular white matter change likely related to small vessel disease. There is no evidence of hemorrhage. No masses are identified. No extra-axial fluid is seen. The paranasal sinuses are well aerated. IMPRESSION: Atrophy and chronic changes without acute process. Reviewed, Interpreted and Dictated by Ralf Avalos MD Transcribed by Lamar Cosme Authenticated and [facility]
[2024-12-28] MEDS: HYDROCODONE/APAP 5/325 MG TABLET 1 TAB PO (11:07)
[2024-12-28 12:34] VITALS: BP 154/70; PULSE 61; RESP 16; TEMP 36.7
== END 2024-12-28 12:50 | disposition home or self-care (01) ==
PROVIDERS: Emergency Provider Student in an Organized Health Care Education/Training Program; PCP Nurse Practitioner Family
DX: M25.511 Pain in right shoulder (principal); W01.10XA Fall on same level from slipping, tripping and stumbling with subsequent striking against unspecified object, initial encounter
CPT/HCPCS: 70450; 73030; 73060; 99283; 99284